=== PATIENT | male | born 1950 | race Caucasian/White ===

== ENCOUNTER 2016-06-07 14:58 | Inpatient (IN) | payer MEDICARE ==
[~2016-06-07] VITALS: Ht 193 cm; Wt 64.9 kg
[2016-06-07] VITALS (16 sets, daily range): BP systolic 95–122; BP diastolic 54–85; PULSE 72–169; RESP 15–36; TEMP 97.5–98.1; O2SAT 95–100
[2016-06-07] MEDS ORDERED: ASPIRIN 81 MG CHEW TAB PO ONE (15:15)
[2016-06-07] MEDS ORDERED: SODIUM CHLOR 0.9% 1000 ML INJ 1,000 ML IV ONE ×2 (15:15→15:45)
[2016-06-07] MEDS ORDERED: DILTIAZEM HCL 25 MG/5 ML VIAL IV ONE ×2 (15:15→15:45)
[2016-06-07] MEDS ORDERED: ADENOSINE IV SOLN 3 MG/ML 2 ML VIAL IV PUSH ONE (15:15)
[2016-06-07] MEDS ORDERED: TETANUS/DIPHTHERIA TOXOID ADULT 0.5 ML VIAL IM ONE (15:15)
[2016-06-07] MEDS: SODIUM CHLORIDE 0.9% FLUSH 5 ML FLUSH IVF PRN ×3 (15:21→16:21)
--- NOTE | 2016-06-07 15:24 | PD ---
HPI Chief Complaint: Cardiac Complaint Time Seen by Provider: 15:05 Travel History International Travel<30 days: No Contact w/Intl Traveler<30days: No Traveled to known affect area: No History of Present Illness HPI The patient is a 66-year-old male who presents to the emergency department via EMS for chest pain and palpitations. The patient was walking to the emergency department when he flagged down an ambulance for his chest pain. EMS states over the last 2 days he has had palpitations with elevated heart rate as well as occasional chest pain that he describes as pressure. The patient denies any shortness of breath, nausea, vomiting, or diaphoresis. Patient does have a history of alcohol use, has been drinking 1 pint of liquor per day for the last 6 months, after a divorce from his . The patient denies any known history of atrial fibrillation or arrhythmias. The patient does complain of lightheadedness, dizziness, as well as chest pressure associated with his palpitations and elevated heart rate. EMS states they gave the patient adenosine 6 mg intravenously prior to arrival, however, it did not affect his heart rate. The patient does not currently have a primary physician. The patient does smoke approximately one half a pack of cigarettes per day. He denies any known drug allergies and denies taking any medications on a regular basis. [facility] Past Medical History Narrative Medical Daily alcohol consumption Cerebrovascular Accident: Yes (?) Past Surgical History Surgical History: No Previous Surgery Social History Alcohol Use: Yes Tobacco Use: Yes Substance Use: No Allergies-Medications (Allergen,Severity, Reaction): Coded Allergies: No Known Allergies (Unverified , 06/07/16) Review of Systems Except as stated in HPI: all other systems reviewed are Neg General / Constitutional: No: Fever HENT: Positive: Lightheadedness Cardiovascular: Positive: Chest Pain or Discomfort, Palpitations, Irregular Rhythm, Tachycardia, No: Diaphoresis, Dyspnea on exertion Respiratory: No: Shortness of Breath Gastrointestinal: No: Nausea, Vomiting Musculoskeletal: No: Weakness Neurologic: Positive: Dizziness Psychiatric: Positive: Substance Abuse (drinks 1 pint of liquor per day) Physical Exam Narrative GENERAL: Awake, alert, pleasant 66-year-old male who appears his stated age and is in no acute respiratory distress. SKIN: Warm and dry. HEAD: Atraumatic. Normocephalic. EYES: Pupils equal and round. No scleral icterus. No injection or drainage. ENT: No nasal bleeding or discharge. Slightly dry mucous members. NECK: Trachea midline. No JVD. CARDIOVASCULAR: Irregularly irregular, tachycardic with a heart rate in the 160s. RESPIRATORY: No accessory muscle use. Coarse breath sounds with rhonchi bilaterally. GASTROINTESTINAL: Abdomen soft, non-tender, nondistended. No rebound tenderness. MUSCULOSKELETAL: No obvious deformities. No clubbing. No cyanosis. No edema. NEUROLOGICAL: Awake and alert. No obvious cranial nerve deficits. Motor grossly within normal limits. Normal speech. Nonfocal. Oriented 4. PSYCHIATRIC: Appropriate mood and affect; insight and judgment normal. Data Data Last Documented VS Vital Signs Date Time Temp Pulse Resp B/P Pulse Ox O2 Delivery O2 Flow Rate FiO2 06/07/16 16:18 138 22 113/65 99 Nasal Cannula 2.0 06/07/16 15:08 97.5 Orders Electrocardiogram (06/07/16 15:05) Ckmb (Isoenzyme) Profile (06/07/16 15:05) Complete Blood Count With Diff (06/07/16 15:05) Comprehensive Metabolic Panel (06/07/16 15:05) Magnesium (Mg) (06/07/16 15:05) Prothrombin Time / Inr (Pt) (06/07/16 15:05) Act Partial Throm Time (Ptt) (06/07/16 15:05) Troponin I (06/07/16 15:05) Chest, Single Ap (06/07/16 15:05) Ecg Monitoring (06/07/16 15:05) Bilateral Bp Monitoring (06/07/16 15:05) Iv Access Insert/Monitor (06/07/16 15:05) Oximetry (06/07/16 15:05) Oxygen Administration (06/07/16 15:05) Aspirin Chew (Aspirin Chew) (06/07/16 15:15) Sodium Chloride 0.9% Flush (Ns Flush) (06/07/16 15:15) Alcohol (Ethanol) (06/07/16 15:05) Sodium Chlor 0.9% 1000 Ml Inj (Ns 1000 M (06/07/16 15:15) Tetanus/Diphtheria Tox Adult (Tetanus/Di (06/07/16 15:15) Adenosine Inj (Adenocard Inj) (06/07/16 15:15) Diltiazem Inj (Cardizem Inj) (06/07/16 15:15) Sodium Chlor 0.9% 1000 Ml Inj (Ns 1000 M (06/07/16 15:45) Digoxin Inj (Lanoxin Inj) (06/07/16 15:45) Diltiazem Inj (Cardizem Inj) (06/07/16 15:45) Diltiazem Inj (Cardizem Inj) (06/07/16 16:30) Sodium Chloride 0.9% Flush (Ns Flush) (06/07/16 16:30) Admit Order (Ed Use Only) (06/07/16 16:28) Labs Laboratory Tests Test 06/07/16 15:20 White Blood Count 9.5 TH/MM3 Red Blood Count 5.10 MIL/MM3 Hemoglobin 16.4 GM/DL Hematocrit 48.1 % Mean Corpuscular Volume 94.3 FL Mean Corpuscular Hemoglobin 32.1 PG Mean Corpuscular Hemoglobin 34.0 % Concent Red Cell Distribution Width 14.4 % Platelet Count 205 TH/MM3 Mean Platelet Volume 8.3 FL Neutrophils (%) (Auto) 65.7 % Lymphocytes (%) (Auto) 20.2 % Monocytes (%) (Auto) 12.2 % Eosinophils (%) (Auto) 0.9 % Basophils (%) (Auto) 1.0 % Neutrophils # (Auto) 6.2 TH/MM3 Lymphocytes # (Auto) 1.9 TH/MM3 Monocytes # (Auto) 1.2 TH/MM3 Eosinophils # (Auto) 0.1 TH/MM3 Basophils # (Auto) 0.1 TH/MM3 CBC Comment DIFF FINAL Differential Comment Prothrombin Time 10.2 SEC Prothromb Time International 0.9 RATIO Ratio Activated Partial 26.3 SEC Thromboplast Time Sodium Level 142 MEQ/L Potassium Level 3.6 MEQ/L Chloride Level 105 MEQ/L Carbon Dioxide Level 20.7 MEQ/L Anion Gap 16 MEQ/L Blood Urea Nitrogen 22 MG/DL Creatinine 1.85 MG/DL Estimat Glomerular Filtration 37 ML/MIN Rate Random Glucose 83 MG/DL Calcium Level 8.4 MG/DL Magnesium Level 1.8 MG/DL Total Bilirubin 0.6 MG/DL Aspartate Amino Transf 131 U/L (AST/SGOT) Alanine Aminotransferase 97 U/L (ALT/SGPT) Alkaline Phosphatase 95 U/L Total Creatine Kinase 79 U/L Troponin I 0.07 NG/ML Total Protein 6.8 GM/DL Albumin 3.5 GM/DL Ethyl Alcohol Level 298 MG/DL [facility] Medical Decision Making Medical Screen Exam Complete: Yes Emergency Medical Condition: Yes Medical Record Reviewed: Yes Interpretation(s) EKG reveals atrial fibrillation with RVR with a rate of 170. Laboratory Tests Test 06/07/16 15:20 White Blood Count 9.5 TH/MM3 Red Blood Count 5.10 MIL/MM3 Hemoglobin 16.4 GM/DL Hematocrit 48.1 % Mean Corpuscular Volume 94.3 FL Mean Corpuscular Hemoglobin 32.1 PG Mean Corpuscular Hemoglobin 34.0 % Concent Red Cell Distribution Width 14.4 % Platelet Count 205 TH/MM3 Mean Platelet Volume 8.3 FL Neutrophils (%) (Auto) 65.7 % Lymphocytes (%) (Auto) 20.2 % Monocytes (%) (Auto) 12.2 % Eosinophils (%) (Auto) 0.9 % Basophils (%) (Auto) 1.0 % Neutrophils # (Auto) 6.2 TH/MM3 Lymphocytes # (Auto) 1.9 TH/MM3 Monocytes # (Auto) 1.2 TH/MM3 Eosinophils # (Auto) 0.1 TH/MM3 Basophils # (Auto) 0.1 TH/MM3 CBC Comment DIFF FINAL Differential Comment Prothrombin Time 10.2 SEC Prothromb Time International 0.9 RATIO Ratio Activated Partial 26.3 SEC Thromboplast Time Sodium Level 142 MEQ/L Potassium Level 3.6 MEQ/L Chloride Level 105 MEQ/L Carbon Dioxide Level 20.7 MEQ/L Anion Gap 16 MEQ/L Blood Urea Nitrogen 22 MG/DL Creatinine 1.85 MG/DL Estimat Glomerular Filtration 37 ML/MIN Rate Random Glucose 83 MG/DL Calcium Level 8.4 MG/DL Magnesium Level 1.8 MG/DL Total Bilirubin 0.6 MG/DL Aspartate Amino Transf 131 U/L (AST/SGOT) Alanine Aminotransferase 97 U/L (ALT/SGPT) Alkaline Phosphatase 95 U/L Total Creatine Kinase 79 U/L Troponin I 0.07 NG/ML Total Protein 6.8 GM/DL Albumin 3.5 GM/DL Ethyl Alcohol Level 298 MG/DL Differential Diagnosis Differential diagnosis includes alcoholic cardiomyopathy, atrial fibrillation with RVR, hypomagnesemia, hypokalemia, dehydration, new onset A. fib, congestive heart failure, alcohol withdrawal. Narrative Course IV was established, labs were drawn and sent, and the patient was placed on cardiac telemetry monitoring and continuous pulse oximetry monitoring. EKG was ordered and interpreted. The patient was noted to have atrial fibrillation with RVR, therefore, was administered Cardizem 20 mg intravenously 1 L IV fluid bolus. Potassium and magnesium levels were sent to lab. Chest x-ray was obtained. The patient's electrolytes are unremarkable. Creatinine is mildly elevated at 1.85, alcohol level is elevated at 285, troponin is elevated at 0.07. Patient's elevated troponin may be related to elevated heart rate and onset atrial fibrillation. The patient did receive aspirin, however, I will hold heparin until patient is evaluated by cardiology. The on-call medical service was paged for admission. The patient required a second dose of Cardizem 15 mg, one dose of digoxin 0.25 mg, heart rate was still in the 120s to 130s. Therefore, patient was placed on a Cardizem drip. Patient will be admitted to the on-call medical service, [facility] on a Cardizem drip. The patient will need evaluation by cardiology for possible anticoagulation with aspirin and /or oral anticoagulants for his atrial fibrillation. Patient will also benefit from echocardiogram. The patient is comfortable with this plan of care and will be admitted. Critical Care Narrative Aggregate critical care time was 40 minutes. Time to perform other separately billable procedures was not included in the critical care time. My time did not include minutes spent treating any other patients simultaneously or on activities that did not directly contribute to the patient's treatment. The services I provided to this patient were to treat and/or prevent clinically significant deterioration that could result in: Arrhythmia, anoxia, hypoxia, NSTEMI, pulmonary edema. I provided critical care services requiring my management, as noted below: Chart data review, documentation time, medication orders and management, vital sign assessments/reviewing monitor data, ordering and reviewing lab tests, ordering and interpreting/reviewing x-rays and diagnostic studies, care of the patient and discussion of the patient with the admitting physicians. Physician Communication Physician Communication The on-call medical service was paged for admission. I discussed the patient with Dr. Jim who agrees with admission. Diagnosis Primary Impression: Atrial fibrillation with RVR Additional Impression: Elevated troponin Admitting Information Admitting Physician Requests: Admit Condition: Stable Silverio Recio MD Jun 07, 2016 15:24
[2016-06-07] MEDS ORDERED: DIGOXIN 0.5 MG/2 ML VIAL IV PUSH ONE (15:45)
[2016-06-07 15:57] LABS: AUTOMATED NEUTROPHIL # 6.2 TH/MM3 (1.8-7.7); BASOPHIL # 0.1 TH/MM3 (0-0.2); EOSINOPHIL # 0.1 TH/MM3 (0-0.4); EOSINOPHIL % 0.9 % (0.0-4.0); HEMATOCRIT 48.1 % (39.0-51.0); HEMO FLAGS DIFF FINAL; LYMPH % 20.2 % (9.0-44.0); LYMPHOCYTE # 1.9 TH/MM3 (1.0-4.8); MEAN CELL VOLUME 94.3 FL (80.0-100.0); MEAN CORPUSCULAR HEMOGLOBIN 32.1 PG (27.0-34.0); MONO % 12.2 % (0.0-8.0); NEUT % 65.7 % (16.0-70.0); PLATELET COUNT 205 TH/MM3 (150-450); RED CELL DISTRIBUTION WIDTH 14.4 % (11.6-17.2); WHITE BLOOD COUNT 9.5 TH/MM3 (4.0-11.0)
[2016-06-07 16:06] LABS: APTT (PATIENT) 26.3 SEC (24.3-30.1); INTERNATIONAL NORMALIZED RATIO 0.9 RATIO; PROTHROMBIN TIME - PATIENT 10.2 SEC (9.8-11.6)
[2016-06-07 16:12] LABS: ALT (GPT) 97 U/L (12-78); ANION GAP 16 MEQ/L (5-15); AST (GOT) 131 U/L (15-37); BICARBONATE 20.7 MEQ/L (21.0-32.0); BLOOD UREA NITROGEN 22 MG/DL (7-18); CHLORIDE 105 MEQ/L (98-107); GLOMERULAR FILTRATION RATE 37 ML/MIN (>89); MAGNESIUM 1.8 MG/DL (1.5-2.5); POTASSIUM 3.6 MEQ/L (3.5-5.1); SODIUM (NA) 142 MEQ/L (136-145)
[2016-06-07 16:15] LABS: ALKALINE PHOSPHATASE 95 U/L (45-117); TOTAL BILIRUBIN ADULT 0.6 MG/DL (0.2-1.0)
[2016-06-07 16:17] LABS: CREATINE KINASE 79 U/L (39-308)
[2016-06-07] MEDS ORDERED: SODIUM CHLORIDE 0.9% FLUSH 5 ML FLUSH IVF PRN (16:30)
[2016-06-07] MEDS ORDERED: DILTIAZEM INJ 125 MG in SODIUM CHLORIDE 0.9% INJ 100 ML IV SCH ×2 (16:30→16:45)
--- NOTE | 2016-06-07 16:33 | RADRPT ---
EXAM DATE/TIME: 06/07/2016 15:24 [place] COMPARISON: No previous studies available for comparison. INDICATIONS : Patient has been short of breath and had chest pain for two days. Patient is a smoker. MEDICAL HISTORY : Chronic obstructive pulmonary disease. SURGICAL HISTORY : None. ENCOUNTER: Initial ACUITY: 2 days PAIN SCORE: 8/10 LOCATION: Bilateral chest FINDINGS: A single view of the chest demonstrates the lungs to be symmetrically aerated without evidence of mas s, infiltrate or effusion. Emphysema. The cardiomediastinal contours are unremarkable. Osseous struc tures are intact. CONCLUSION: 1. No acute findings. Emphysema. Jerry Ugalde MD on June 07, 2016 at 16:31 Board Certified Radiologist. This report was verified electronically.
--- NOTE | 2016-06-07 16:40 | HHI.HP ---
[facility] Service Family Medicine Primary Care Physician Admission Diagnosis new onset atrial fibrillation, elevated troponin Diagnoses: Chief Complaint: palpitations International Travel<30 Days: No Contact w/Intl Traveler<30days: No Known Affected Area: No History of Present Illness 66 y/o male with a history of COPD presents by evac for palpitations. States for the last two days, he has felt general malaise and palpitations. Denies any palpitations in the past. Also states he has had trouble sleeping and decreased appetite. Some chest pain in the past, none currently. Has a history of COPD and chronic shortness of breath after walking a couple blocks. Endorses lightheadedness/dizziness, fever/chills. Drinks a pint of liquor a day for several years. No history of heart disease. No family history of heart disease. No history of high blood pressure or hyperthyroidism. No strokes in the past. Has no primary care doctor. Review of Systems Constitutional: COMPLAINS OF: Fever, Chills Endocrine: DENIES: Heat/cold intolerance, Polydipsia Eyes: DENIES: Blurred vision, Vision loss Ears, nose, mouth, throat: DENIES: Tinnitus, Hearing loss, Throat pain, Running Nose Respiratory: COMPLAINS OF: Cough, Sputum production, Shortness of breath Cardiovascular: COMPLAINS OF: Palpitations, DENIES: Chest pain, Lower Extremity Edema Gastrointestinal: DENIES: Abdominal pain, Black stools, Bloody stools, Constipation, Diarrhea, Nausea, Vomiting Genitourinary: DENIES: Urinary frequency, Urinary incontinence Musculoskeletal: DENIES: Joint pain, Muscle aches Integumentary: DENIES: Abnormal pigmentation, Rash Hematologic/lymphatic: DENIES: Bruising, Lymphadenopathy Immunologic/allergic: DENIES: Eczema, Urticaria Neurologic: DENIES: Abnormal gait, Headache Psychiatric: COMPLAINS OF: Depression, DENIES: Anxiety, Confusion Other as per [facility] Past Family Social History Past Medical History COPD Past Surgical History None Reported Medications Albuterol inhaler Allergies: Coded Allergies: No Known Allergies (Unverified , 06/07/16) Active Ordered Medications Active Medications Adenosine (Adenocard Inj) 12 mg ONCE ONCE IV PUSH; Start 06/07/16 at 15:15; Stop 06/07/16 at 15:15; Status DC Aspirin (Aspirin Chew) 162 mg ONCE ONCE PO Last administered on 06/07/16t 15:22 ; Admin Dose 162 MG; Start 06/07/16 at 15:15; Stop 06/07/16 at 15:16; Status DC Digoxin (Lanoxin Inj) 0.25 mg ONCE ONCE IV PUSH Last administered on 06/07/16 16:21; Admin Dose 0.25 MG; Start 06/07/16 at 15:45; Stop 06/07/16 at 15:46; Status DC Diltiazem HCl 15 mg 15 mg ONCE ONCE IV Last administered on 06/07/16 16:12; Admin Dose 15 MG; Start 06/07/16 at 15:45; Stop 06/07/16 at 15:46; Status DC Diltiazem HCl 20 mg 20 mg ONCE ONCE IV Last administered on 06/07/16 15:20; Admin Dose 20 MG; Start 06/07/16 at 15:15; Stop 06/07/16 at 15:16; Status DC Diltiazem HCl/ Sodium Chloride (Cardizem Inj/NS Inj) 125 ml @ 0 mls/hr TITRATE IV; Start 06/07/16 at 16:30 IV Flush (NS Flush) 2 ml UNSCH PRN IVF; Start 06/07/16 at 16:30 IV Flush 2 ml 2 ml UNSCH PRN IVF Last administered on 06/07/16 16:21; Admin Dose 2 ML; Start 06/07/16 at 15:15 Sodium Chloride (NS 1000 ml Inj) 1,000 ml @ 999 mls/hr BOLUS ONCE IV Last administered on 06/07/16 15:21; Admin Dose 999 MLS/HR; Start 06/07/16 at 15:15 ; Stop 06/07/16 at 16:15; Status DC Sodium Chloride (NS 1000 ml Inj) 1,000 ml @ 999 mls/hr BOLUS ONCE IV Last administered on 06/07/16 15:39; Admin Dose 999 MLS/HR; Start 06/07/16 at 15:45 ; Stop 06/07/16 at 16:45 Tetanus/ Diphtheria Toxoids (Tetanus/ Diphtheria Tox Adult) 0.5 ml ONCE ONCE IM Last administered on 06/07/16 15:28; Admin Dose 0.5 ML; Start 06/07/16 at 15:15 ; Stop 06/07/16 at 15:16; Status DC Family History No history of heart disease Social History Drinks 1 pint/day for years Smokes 1/2 PPD for 55 years Denies illicit drug use Physical Exam Vital Signs Vital Signs Date Time Temp Pulse Resp B/P Pulse Ox O2 Delivery O2 Flow Rate FiO2 06/07/16 16:33 135 26 117/78 96 Nasal Cannula 2.0 06/07/16 16:18 138 22 113/65 99 Nasal Cannula 2.0 06/07/16 15:35 148 30 95/54 97 Room Air 06/07/16 15:33 141 95/54 117/70 06/07/16 15:17 169 36 117/70 Room Air 06/07/16 15:15 97 Room Air 06/07/16 15:15 Nasal Cannula 2.0 06/07/16 15:13 170 36 96 Room Air 06/07/16 15:08 97.5 167 30 117/70 96 Physical Exam GENERAL: Well developed, well-nourished elderly male. Negative Lavines sign. Not diaphoretic. Not anxious appearing. EYES: PERRLA. EOMI. Lids and conjunctivae reveal no gross abnormality. No scleral icterus. ENT: Head NCAT. MMM. OP/OC clear. NECK: No JVD. No carotid bruits. Neck supple, no masses. Trachea midline. No thyromegaly. RESPIRATORY: No evidence of pulmonary edema. Scattered wheezes throughout. Prolonged expiratory phase CARDIOVASCULAR: Irregularly irregular rhythm. Heart rate is 130. Radial and DP pulses 2+ and symmetric bilaterally. Brisk capillary refill. ABDOMEN: S/NT/ND. Bowel sounds x 4. No masses or pulsations present. EXTREMITIES: No remarkable dependent edema or varicosities. No clubbing, cyanosis, or erythema. MUSCULOSKELETAL: MAEW without significant joint pain or deformity. Strength 5/5 in upper and lower extremities. No calf tenderness. SKIN: Essentially clear with no significant rash or lesions. Adequate skin turgor. NEUROLOGICAL: NFND. Cranial nerves 2-12 grossly intact. PSYCHIATRIC: Mental status normal for age. Laboratory Laboratory Tests Test 06/07/16 15:20 White Blood Count 9.5 Red Blood Count 5.10 Hemoglobin 16.4 Hematocrit 48.1 Mean Corpuscular Volume 94.3 Mean Corpuscular Hemoglobin 32.1 Mean Corpuscular Hemoglobin 34.0 Concent Red Cell Distribution Width 14.4 Platelet Count 205 Mean Platelet Volume 8.3 Neutrophils (%) (Auto) 65.7 Lymphocytes (%) (Auto) 20.2 Monocytes (%) (Auto) 12.2 Eosinophils (%) (Auto) 0.9 Basophils (%) (Auto) 1.0 Neutrophils # (Auto) 6.2 Lymphocytes # (Auto) 1.9 Monocytes # (Auto) 1.2 Eosinophils # (Auto) 0.1 Basophils # (Auto) 0.1 CBC Comment DIFF FINAL Differential Comment Prothrombin Time 10.2 Prothromb Time International 0.9 Ratio Activated Partial 26.3 Thromboplast Time Sodium Level 142 Potassium Level 3.6 Chloride Level 105 Carbon Dioxide Level 20.7 Anion Gap 16 Blood Urea Nitrogen 22 Creatinine 1.85 Estimat Glomerular Filtration 37 Rate Random Glucose 83 Calcium Level 8.4 Magnesium Level 1.8 Total Bilirubin 0.6 Aspartate Amino Transf 131 (AST/SGOT) Alanine Aminotransferase 97 (ALT/SGPT) Alkaline Phosphatase 95 Total Creatine Kinase 79 Troponin I 0.07 Total Protein 6.8 Albumin 3.5 Ethyl Alcohol Level 298 Result Diagram: 06/07/16 1520 06/07/16 1520 Imaging Last Impressions Chest X-Ray 06/07/16 1505 Signed Impressions: Service Date/Time: Thursday, June 07, 2016 15:24 - CONCLUSION: 1. No acute findings. Emphysema. Jerry Ugalde MD Assessment and Plan Assessment and Plan 66-year-old male with history of COPD presents with palpitations. Found to be in atrial fibrillation with RVR. We will admit for A. fib workup. Code Status DNR Discussed Condition With Dr. Jim Problem List: (1) Atrial fibrillation with RVR Status: Acute Plan: No history of atrial fibrillation or heart disease. Has a significant social history of smoking and alcohol abuse. Alcohol level of 298 EKG showed atrial fibrillation with RVR CXR showed no acute findings, emphysema. Given Adenosine, cardizem x2, and digoxin with no resolution of tachycardia [id number]-Urmc score of 1 -Start diltiazem drip -Initial Trop 0.07. Trend Fay and EKGs x 2. -Supplemental O2. -Metoprolol 25 PO BID elmer -2D Echocardiogram -Tele. -TSH, free T4 -Consult cardiology, appreciate recs -Start warfarin and therapeutic lovenox -AM BMP (2) COPD (chronic obstructive pulmonary disease) Status: Acute Plan: History of COPD. Chest x-ray positive for emphysema -Albuterol nebulizer q4H -Duonebs q4H PRN -Supplemental O2 (3) Alcohol abuse Status: Acute Plan: Drinks 1 pint per day. Alcohol level 298 AST 131, AST 97 -CIWA protocol -Rally pack -Counseled on risks of alcohol abuse (4) FEN Status: Acute Plan: Fluids: none, diltiazem drip Electrolytes: wnl, continue to monitor Nutrition: heart healthy diet DVT ppx: therapeutic lovenox Physician Certification 2 Midnight Certification Type: Admission for Inpatient Services Order for Inpatient Services The services are ordered in accordance with Medicare regulations or non- Medicare payer requirements, as applicable. In the case of services not specified as inpatient-only, they are appropriately provided as inpatient services in accordance with the 2-midnight benchmark. Estimated LOS (days): 3 days is the estimated time the patient will need to remain in the hospital, assuming treatment plan goals are met and no additional complications. Post-Hospital Plan: Home Problem Qualifiers (1) COPD (chronic obstructive pulmonary disease): Qualified Code: J44.9 - Chronic obstructive pulmonary disease, unspecified COPD type Valeriano Smith MD R1 Jun 07, 2016 16:40
[2016-06-07] MEDS ORDERED: LORazepam 2 MG TAB PO PRN (16:45)
[2016-06-07] MEDS ORDERED: hydrALAZINE HCL 20 MG/ML VIAL IV PRN (16:45)
[2016-06-07] MEDS ORDERED: RESP: ALBUTEROL 2.5 MG/IPRATROPIUM 0.5 MG NEB (PRN) NEB (16:45)
[2016-06-07] MEDS ORDERED: LORazepam 2 MG/ML VIAL IV PUSH PRN ×3 (16:45)
[2016-06-07] MEDS ORDERED: DOCUSATE SODIUM 50 MG/SENNA 8.6 MG TAB PO PRN (16:45)
[2016-06-07] MEDS ORDERED: HALOPERIDOL LACTATE 5 MG/ML AMP IM PRN (16:45)
[2016-06-07] MEDS ORDERED: SODIUM CHLORIDE 0.9% FLUSH 5 ML FLUSH FLUSH PRN (16:45)
[2016-06-07] MEDS ORDERED: FLUMAZENIL 0.5 MG/5 ML VIAL IV PUSH PRN (16:45)
[2016-06-07] MEDS: WARFARIN SOD 5 MG TAB PO SCH (17:17)
[2016-06-07] MEDS: NICOTINE 21 MG/24 HR PATCH TD SCH (17:19)
[2016-06-07] MEDS: ENOXAPARIN SODIUM 80 MG/0.8 ML SYRINGE SQ SCH (17:20)
[2016-06-07] MEDS: RESP: ALBUTEROL 2.5 MG/3 ML NEB (SCH) NEB (19:42)
[2016-06-07] MEDS ORDERED: DILTIAZEM HCL 60 MG TAB PO SCH (20:00)
[2016-06-07] MEDS: REMOVE OLD NICODERM (NICOTINE) PATCH TD SCH (21:00)
[2016-06-07] MEDS: METOPROLOL TARTRATE 25 MG TAB PO SCH (21:02)
[2016-06-07] MEDS: SODIUM CHLORIDE 0.9% FLUSH 5 ML FLUSH FLUSH SCH (21:03)
[2016-06-08] VITALS (26 sets, daily range): BP systolic 112–145; BP diastolic 59–77; PULSE 59–94; RESP 15–20; TEMP 97.9–99; O2SAT 92–99
[2016-06-08] MEDS: DILTIAZEM HCL 60 MG TAB PO SCH ×4 (02:32→20:43)
[2016-06-08 04:54] LABS: HEMATOCRIT 38.7 % (39.0-51.0); MEAN CELL VOLUME 94.4 FL (80.0-100.0); MEAN CORPUSCULAR HEMOGLOBIN 32.5 PG (27.0-34.0); MEAN CORPUSCULAR HGB CONC 34.4 % (32.0-36.0); PLATELET COUNT 146 TH/MM3 (150-450); RED CELL DISTRIBUTION WIDTH 14.1 % (11.6-17.2); REVIEW FLAG FINAL; WHITE BLOOD COUNT 9.8 TH/MM3 (4.0-11.0)
[2016-06-08 05:19] LABS: BICARBONATE 26.6 MEQ/L (21.0-32.0); POTASSIUM 3.6 MEQ/L (3.5-5.1)
[2016-06-08 05:20] LABS: FREE T4 1.01 NG/DL (0.76-1.46)
[2016-06-08] MEDS: ENOXAPARIN SODIUM 80 MG/0.8 ML SYRINGE SQ SCH ×2 (06:28→17:19)
[2016-06-08] MEDS: RESP: ALBUTEROL 2.5 MG/3 ML NEB (SCH) NEB ×4 (07:22→20:00)
[2016-06-08] MEDS: MULTIVITAMINS/MINERALS THERAPEUTIC TAB PO SCH (07:56)
[2016-06-08] MEDS: FOLIC ACID 1 MG TAB PO SCH (07:56)
[2016-06-08] MEDS: THIAMINE HCL 100 MG TAB PO SCH (07:56)
[2016-06-08] MEDS: LORazepam 1 MG TAB PO PRN (07:56)
[2016-06-08] MEDS: METOPROLOL TARTRATE 25 MG TAB PO SCH ×2 (07:56→20:43)
[2016-06-08] MEDS: SODIUM CHLORIDE 0.9% FLUSH 5 ML FLUSH FLUSH SCH ×2 (07:57→20:43)
[2016-06-08] MEDS: LORazepam 2 MG/ML VIAL IV PUSH PRN ×3 (09:46→17:18)
[2016-06-08] MEDS: NICOTINE 21 MG/24 HR PATCH TD SCH (09:47)
--- NOTE | 2016-06-08 10:25 | MB ---
cc: RAMILA CORTES MD DATE OF CONSULTATION: 06/08/2016 REASON FOR CONSULTATION New onset atrial fibrillation, chest pain. HISTORY OF PRESENT ILLNESS The patient is a pleasant 66-year-old gentleman who is an alcoholic, drinking about a pint of liquor a day, who for the past week or so has been having palpitations as well as chest tightness, was found to be in rapid atrial fibrillation in the emergency department yesterday and was admitted. He has since converted back to normal sinus rhythm and is feeling better without any residual palpitations or chest discomfort, lightheadedness or dizziness. PAST MEDICAL HISTORY COPD with ongoing tobacco abuse. MEDICATIONS Current medications: 1. Folate. 2. Thiamine. 3. Cardizem p.o. 60 mg q.6 hours. 4. Lopressor 25 mg p.o. b.i.d. 5. As needed Ativan. 6. Haldol. 7. Warfarin. ALLERGIES NO KNOWN DRUG ALLERGIES. PHYSICAL EXAMINATION VITAL SIGNS: Afebrile. Pulse 60, respiratory rate 20, BP 145/71. Sating 99 on room air. GENERAL: A pleasant, thin gentleman with clear alcohol withdrawal tremors. NECK: No JVD. LUNGS: Clear to auscultation bilaterally. CARDIOVASCULAR: Regular rate and rhythm. No murmurs appreciated. ABDOMEN: Abdomen is benign. EXTREMITIES: No edema. LABORATORY DATA Sodium 141, potassium 3.6, chloride 107, bicarb 26.6, BUN 18, creatinine 0.85, down from 1.85, cardiac enzymes 0.07, 0.09, 0.06. White count 9.8, hematocrit 38.7, platelets 146. EKG Showed atrial fibrillation rate of [address] changes. Subsequent EKG showed sinus rate at [address] changes. IMPRESSION 1. New onset atrial fibrillation. The patient likely has an alcohol-related paroxysmal atrial fibrillation. He is currently in sinus and on warfarin for anticoagulation and metoprolol and Cardizem for rate control. He does say he is willing to take medications regularly. 2. Chest pain. The patient's chest pain may simply be due to his palpitations but given his slightly abnormal troponins, we will have him undergo a nuclear stress test, ideally when his withdrawal tremors are better controlled. 3. Alcohol, tobacco abuse. I counseled both of these at length. The patient says he will try to do better. Further recommendations will be based on his clinical course. An echocardiogram is also pending. Thank you for the opportunity to participate in this patient's care. MD SEBASTIÁN Isbell/JUAN A /9:44 AM /10:16 AM
--- NOTE | 2016-06-08 10:55 | HHI.FPPN ---
Subjective Remarks Patient seen, examined and discussed with the medicine team. This is a 66-year-old male who presented via [facility] 2 the emergency department with palpitations. He had not experienced this in the past. Denies chest pain but it admits to chronic shortness of breath, unable to walk more than a couple of blocks without coming short of breath. He does not have a PCP, uses albuterol for his COPD. Admits to 1 pint of whiskey a day , one half pack of cigarettes daily for 55 years. He was given adenosine and Cardizem 2, and digoxin and was rate controlled. He then converted. See history and physical examination for this hospitalization for additional past, family and social history. Patient lives alone. Review of systems this morning was repeated, and other than a productive cough and excessive sputum, unchanged from yesterday with the exception that he no longer is feeling the palpitations. Unless noted, other systems are negative. This morning, he is tremulous, feels a bit shaky, and is coughing up thick clear to light yellow sputum. No chest pain, no palpitations. He denies ever having had a withdrawal seizure. Objective Vitals Vital Signs Date Time Temp Pulse Resp B/P Pulse Ox O2 Delivery O2 Flow Rate FiO2 06/08/16 10:00 59 06/08/16 09:00 60 06/08/16 08:00 68 06/08/16 07:00 62 06/08/16 07:00 97.9 68 20 145/71 99 06/08/16 06:00 69 06/08/16 05:00 61 06/08/16 04:00 70 06/08/16 03:00 98.0 94 20 128/71 95 06/08/16 03:00 72 06/08/16 02:00 62 06/08/16 01:00 69 06/08/16 00:00 71 06/07/16 23:00 98.1 73 20 114/62 95 06/07/16 23:00 76 06/07/16 22:00 80 06/07/16 21:00 80 06/07/16 20:00 77 06/07/16 19:00 83 25 121/60 98 06/07/16 16:33 135 26 117/78 96 Nasal Cannula 2.0 06/07/16 16:18 138 22 113/65 99 Nasal Cannula 2.0 06/07/16 15:35 148 30 95/54 97 Room Air 06/07/16 15:33 141 95/54 117/70 06/07/16 15:17 169 36 117/70 Room Air 06/07/16 15:15 97 Room Air 06/07/16 15:15 Nasal Cannula 2.0 06/07/16 15:13 170 36 96 Room Air 06/07/16 15:08 97.5 167 30 117/70 96 I/O 06/07/16 06/07/16 06/07/16 06/08/16 06/08/16 06/08/16 07:00 15:00 23:00 07:00 15:00 23:00 Intake Total 960 ml Output Total 210 ml Balance 750 ml Intake Oral 960 ml Output Urine Total 210 ml # Voids 2 # Bowel Movements 0 Result Diagram: 06/08/16 0439 06/08/16 0439 Other Results CIWA score this morning was 4 Imaging Last Impressions Chest X-Ray 06/07/16 1505 Signed Impressions: Service Date/Time: Tuesday, June 07, 2016 15:24 - CONCLUSION: 1. No acute findings. Emphysema. Jerry Ugalde MD Objective Remarks O. CONSTITUTIONAL/GEN: normally nourished, tremulous. He has been given 1 dose of by mouth Ativan. EYES: conjunctiva normal, PERRLA, EOMI. NECK: Supple LUNGS: Coarse breath sounds throughout, worse in the bases. CARDIOVASCULAR: RR without murmur or gallop. No significant edema. GI/ABD: soft without masses, without organomegaly. Active bowel sounds NEURO: No focal deficits. Tremulous SKIN: color normal, no rashes noted. HEME/LYMPH: no bruising, petechia or significant adenopathy MUSC: back is normal in appearance. Extremities are normal in appearance. PSYCH/MENTAL STATUS: Alert and oriented x 3. A/P Assessment and Plan 66-year-old male with history of COPD presents with palpitations. Found to be in atrial fibrillation with RVR. He has subsequently converted and is rate controlled. He has been seen by cardiology and nuclear stress test will be performed when patient is stable from his alcohol withdrawal. Attending Attestation Patient seen and examined. Case reviewed and discussed with the resident team. Agree with plan of care as discussed with me and documented in the note. Problem List: (1) Atrial fibrillation with RVR Status: Resolved Plan: No history of atrial fibrillation or heart disease. Has a significant social history of smoking and alcohol abuse. Alcohol level of 298 EKG showed atrial fibrillation with RVR CXR showed no acute findings, emphysema. Given Adenosine, cardizem x2, and digoxin with no resolution of tachycardia [id number] score of 1 -Start diltiazem drip -Initial Trop 0.07. Trend Fay and EKGs x 2. -Supplemental O2. -Metoprolol 25 PO BID elmer -2D Echocardiogram -Tele. -TSH, free T4 -Consult cardiology, appreciate recs -Start warfarin and therapeutic lovenox -AM BMP (2) COPD (chronic obstructive pulmonary disease) Status: Chronic Plan: History of COPD. Chest x-ray positive for emphysema -Albuterol nebulizer q4H -Duonebs q4H PRN -Supplemental O2 (3) Alcohol abuse Status: Chronic Plan: Drinks 1 pint per day. Alcohol level 298 AST 131, AST 97 -CIWA protocol -Rally pack -Counseled on risks of alcohol abuse and encouraged to use this opportunity to quit drinking alcohol. (4) FEN Status: Chronic Plan: Fluids: none Electrolytes: wnl, continue to monitor Nutrition: heart healthy diet DVT ppx: therapeutic lovenox (5) Tobacco abuse disorder Status: Chronic Plan: Counseled for smoking cessation Problem Qualifiers (1) COPD (chronic obstructive pulmonary disease): Qualified Code: J44.9 - Chronic obstructive pulmonary disease, unspecified COPD type Yvrose Mcnulty MD Jun 08, 2016 10:55
[2016-06-08] MEDS ORDERED: CALCIUM CARBONATE 500 MG CHEWABLE TAB CHEW ONE (11:00)
[2016-06-08 11:08] LABS: PROTHROMBIN TIME - PATIENT 11.4 SEC (9.8-11.6)
[2016-06-08] MEDS: RESP: ALBUTEROL 2.5 MG/IPRATROPIUM 0.5 MG NEB (SCH) NEB ×3 (11:36→20:15)
--- NOTE | 2016-06-08 12:42 | EKG ---
Date Performed: 06/07/2016 Time Performed: 15:10:43 PTAGE: 66 years EKG: ATRIAL FIBRILLATION WITH RAPID VENTRICULAR RESPONSE MODERATE ST DEPRESSION ABNORMAL ECG INT ERPRETATION BASED ON A DEFAULT AGE OF 40 YEARS NO PREVIOUS TRACING DOCTOR: Aguilar Tomlin Interpretating Date/Time 06/08/2016 12:41:27
--- NOTE | 2016-06-08 12:43 | EKG ---
Date Performed: 06/08/2016 Time Performed: 03:49:26 PTAGE: 66 years EKG: Sinus rhythm Compared to previous tracing, sinus rhythm has replaced rapid atrial fibrillation Normal ECG PREVIOUS TRACING : 06/07/2016 15.10 DOCTOR: Aguilar Tomlin Interpretating Date/Time 06/08/2016 12:41:49
[2016-06-08] MEDS: WARFARIN SOD 5 MG TAB PO SCH (16:09)
--- NOTE | 2016-06-08 16:31 | EC ---
Study Study Date:06/08/2016 STUDY CONCLUSIONS SUMMARY - Procedure narrative: Transthoracic echocardiography. Image quality was suboptimal. The study was technically limited. Scanning was performed from the parasternal, apical, and subcostal acoustic windows. - Left ventricle: The cavity size was normal. Wall thickness was normal. Systolic function was normal. The estimated ejection fraction was in the range of 55% to 60%. - Aortic valve: Valve area: 2.39cm^2 (Vmax). If LV function is below 40, please consider prescribing an ACEI or ARB or document rationale for non-use. PROCEDURE DATA STUDY STATUS: Elective. Procedure: Transthoracic echocardiography. Image quality was suboptimal. The study was technically limited. Scanning was performed from the parasternal, apical, and subcostal acoustic windows. Study completion: The patient tolerated the procedure well. Transthoracic echocardiography. M-mode, complete 2D, complete spectral Doppler, and color Doppler. Height: Height: 76in. Weight: Weight: 148.7lb. Body mass index: BMI: 18.1kg/m^2. Body surface area: BSA: 1.96m^2. Patient status: Inpatient. CARDIAC ANATOMY LEFT VENTRICLE: The cavity size was normal. Wall thickness was normal. Systolic function was normal. The estimated ejection fraction was in the range of 55% to 60%. Images were inadequate for LV wall motion assessment. AORTIC VALVE: Trileaflet; normal thickness leaflets. Doppler: Transvalvular velocity was within the normal range. There was no stenosis. No regurgitation. Valve area: 2.39cm^2 (Vmax). Indexed valve area: 1.22cm^2/m^2 (Vmax). AORTA: Aortic root: The aortic root was normal in size. MITRAL VALVE: Structurally normal valve. Doppler: Transvalvular velocity was within the normal range. There was no evidence for stenosis. No regurgitation. LEFT ATRIUM: The atrium was normal in size. RIGHT VENTRICLE: The cavity size was normal. Wall thickness was normal. PULMONIC VALVE: Doppler: Transvalvular velocity was within the normal range. There was no evidence for stenosis. No regurgitation. TRICUSPID VALVE: Structurally normal valve. Doppler: Transvalvular velocity was within the normal range. No regurgitation. PULMONARY ARTERY: The main pulmonary artery was normal-sized. Systolic pressure was within the normal range. RIGHT ATRIUM: The atrium was normal in size. PERICARDIUM: There was no pericardial effusion. SYSTEMIC VEINS: Inferior vena cava: The vessel was normal in size. Patient weight: 148.7lb _Ejection fraction:_ 65-75% _Fractional shortening:_ 32% up to 5Kg 5-11.5Kg 11.6-22.9Kg 23-45Kg 45-57Kg Aortic Root 7-13 <17 13-22 17-27 17-27 LA diam 6-13 <23 24-38 33-47 37-40 RVID 10-17 7-15 7-15 7-18 8-17 LVIDd 12-22 <32 24-38 33-47 37-40 LVPW 2-4 3-6 5-7 6-8 7-8 IVS 2-4 3-6 5-7 6-8 7-8 BASIC MEASUREMENTS ADULT NORMAL Left ventricle LV internal dimension, ED, chordal 44.5 mm 43-52 level, PLAX LV internal dimension, ES, chordal 34 mm 23-38 level, PLAX Fractional shortening, chordal level, *24 % >29 PLAX LV posterior wall thickness, ED 7.6 mm IVS/LVPW ratio, ED 1.07 <1.3 Ventricular septum Septal thickness, ED 8.12 mm Aortic valve Leaflet separation 17 mm 15-26 BASIC MEASUREMENTS ADULT NORMAL Aortic valve Leaflet separation 17 mm 15-26 Aorta Root diameter, ED 21 mm 20-37 Left atrium Anterior-posterior dimension, ES 29 mm 19-40 Anterior-posterior dimension index, ES 1.48 cm/m^2 <2.2 LA/aortic root ratio 1.38 DOPPLER MEASUREMENTS ADULT NORMAL Aortic valve Peak velocity, S 82.8 cm/s Valve area, Vmax 2.39 cm^2 Valve area index, Vmax 1.22 cm^2/m^2 LEGEND: Mean values are shown as u=mean value. Asterisk (*) anderson values outside specified normal range. Prepared and signed by Aguilar Tomlin [id number]
[2016-06-08] MEDS: REMOVE OLD NICODERM (NICOTINE) PATCH TD SCH (20:43)
[2016-06-09] VITALS (25 sets, daily range): BP systolic 128–149; BP diastolic 71–80; PULSE 66–87; RESP 17–18; TEMP 97.5–99.6; O2SAT 95–97
[2016-06-09] MEDS: DILTIAZEM HCL 60 MG TAB PO SCH ×4 (02:45→20:33)
[2016-06-09] MEDS: RESP: ALBUTEROL 2.5 MG/IPRATROPIUM 0.5 MG NEB (SCH) NEB ×7 (04:00→23:04)
[2016-06-09] MEDS: ENOXAPARIN SODIUM 80 MG/0.8 ML SYRINGE SQ SCH ×2 (05:59→18:16)
[2016-06-09 07:17] LABS: PROTHROMBIN TIME - PATIENT 11.4 SEC (9.8-11.6)
[2016-06-09 07:21] LABS: AUTOMATED NEUTROPHIL # 5.8 TH/MM3 (1.8-7.7); BASOPHIL # 0.1 TH/MM3 (0-0.2); EOSINOPHIL # 0.3 TH/MM3 (0-0.4); HEMATOCRIT 39.8 % (39.0-51.0); HEMO FLAGS DIFF FINAL; LYMPH % 20.1 % (9.0-44.0); LYMPHOCYTE # 1.7 TH/MM3 (1.0-4.8); MEAN CELL VOLUME 94.6 FL (80.0-100.0); MEAN CORPUSCULAR HGB CONC 33.8 % (32.0-36.0); MONO % 7.6 % (0.0-8.0); NEUT % 68.3 % (16.0-70.0); PLATELET COUNT 123 TH/MM3 (150-450); RED BLOOD COUNT 4.21 MIL/MM3 (4.50-5.90); WHITE BLOOD COUNT 8.4 TH/MM3 (4.0-11.0)
[2016-06-09 07:26] LABS: BICARBONATE 26.3 MEQ/L (21.0-32.0)
[2016-06-09 07:39] LABS: POTASSIUM 2.9 MEQ/L (3.5-5.1)
--- NOTE | 2016-06-09 08:30 | PD.CARD.PN ---
Subjective Subjective Remarks Pt says cp has improved (not gone entirely); still very tremulous Objective Medications Administered Medications Medications (Trade) Dose Ordered Sig/Dana Route PRN Reason Start Time Stop Time Status Last Admin Dose Admin IV Flush (NS Flush) 2 ml BID FLUSH 06/07/16 21:00 06/08/16 20:43 Metoprolol Tartrate (Lopressor) 25 mg BID PO 06/07/16 21:00 06/08/16 20:43 Enoxaparin Sodium (Lovenox Inj) 70 mg Q12H SQ 06/07/16 18:00 06/09/16 05:59 Warfarin Sodium (Coumadin) 5 mg DAILY@1600 PO 06/07/16 17:00 06/08/16 16:09 Lorazepam (Ativan) 1 mg Q4H PRN PO CIWA 8 - 10 06/07/16 16:45 06/08/16 07:56 Lorazepam (Ativan Inj) 1 mg Q4H PRN IV PUSH CIWA 8 - 10 06/07/16 16:45 06/08/16 17:18 Nicotine (Habitrol 21 Mg Patch.24 Hr) 1 patch DAILY TD 06/07/16 18:00 06/08/16 09:47 Miscellaneous Information 1 HS TD 06/07/16 21:00 06/08/16 20:43 Folic Acid (Folate) 1 mg DAILY PO 06/08/16 09:00 06/13/16 08:59 06/08/16 07:56 Thiamine HCl (Vitamin B1) 100 mg DAILY PO 06/08/16 09:00 06/08/16 07:56 Multivitamins/ Minerals Therapeutic (Theragran M Tab) 1 tab DAILY PO 06/08/16 09:00 06/13/16 08:59 06/08/16 07:56 Diltiazem HCl (Cardizem) 60 mg Q6H PO 06/08/16 02:00 06/09/16 02:45 Vital Signs / I&O Vital Signs Date Time Temp Pulse Resp B/P Pulse Ox O2 Delivery O2 Flow Rate FiO2 06/09/16 07:51 21 06/09/16 07:48 97.8 78 17 143/78 95 06/09/16 07:00 66 06/09/16 06:00 72 06/09/16 05:00 67 06/09/16 04:00 72 06/09/16 03:00 97.9 72 17 144/80 95 06/09/16 03:00 69 06/09/16 02:00 67 06/09/16 01:00 69 06/09/16 00:00 67 06/08/16 23:00 69 06/08/16 23:00 99.0 66 20 138/65 96 06/08/16 22:00 75 06/08/16 21:00 76 06/08/16 20:00 78 06/08/16 19:00 98.4 81 20 134/66 92 06/08/16 19:00 84 06/08/16 18:00 79 06/08/16 17:00 81 06/08/16 16:00 84 06/08/16 15:00 97.9 79 18 136/77 92 06/08/16 15:00 80 06/08/16 14:00 80 06/08/16 13:00 71 06/08/16 12:00 85 06/08/16 11:53 93 06/08/16 11:00 98.4 77 15 112/59 93 06/08/16 11:00 66 06/08/16 10:00 59 06/08/16 09:00 60 I/O 06/08/16 06/08/16 06/08/16 06/09/16 06/09/16 06/09/16 07:00 15:00 23:00 07:00 15:00 23:00 Intake Total 960 ml 1200 ml 480 ml Output Total 210 ml 450 ml 400 ml Balance 750 ml 750 ml 80 ml Intake Oral 960 ml 1200 ml 480 ml Output Urine Total 210 ml 450 ml 400 ml Stool Total 0 ml # Voids 2 # Bowel Movements 0 Physical Exam GENERAL: Thin/tremulous (DTs) RESPIRATORY: Clear to auscultation. Breath sounds equal bilaterally. No wheezes , rales, or rhonchi. GASTROINTESTINAL: Abdomen soft, non-tender, nondistended. Normal active bowel sounds MUSCULOSKELETAL: Extremities without clubbing, cyanosis, or edema. NEURO: Alert & Oriented x4 to person, place, time, situation. Moves all ext x4 Laboratory Laboratory Tests Test 06/08/16 06/09/16 10:26 05:25 Prothrombin Time 11.4 SEC 11.4 SEC Prothromb Time International 1.0 RATIO 1.0 RATIO Ratio White Blood Count 8.4 TH/MM3 Red Blood Count 4.21 MIL/MM3 Hemoglobin 13.5 GM/DL Hematocrit 39.8 % Mean Corpuscular Volume 94.6 FL Mean Corpuscular Hemoglobin 32.0 PG Mean Corpuscular Hemoglobin 33.8 % Concent Red Cell Distribution Width 14.0 % Platelet Count 123 TH/MM3 Mean Platelet Volume 9.0 FL Neutrophils (%) (Auto) 68.3 % Lymphocytes (%) (Auto) 20.1 % Monocytes (%) (Auto) 7.6 % Eosinophils (%) (Auto) 3.0 % Basophils (%) (Auto) 1.0 % Neutrophils # (Auto) 5.8 TH/MM3 Lymphocytes # (Auto) 1.7 TH/MM3 Monocytes # (Auto) 0.6 TH/MM3 Eosinophils # (Auto) 0.3 TH/MM3 Basophils # (Auto) 0.1 TH/MM3 CBC Comment DIFF FINAL Differential Comment Sodium Level 139 MEQ/L Potassium Level 2.9 MEQ/L Chloride Level 104 MEQ/L Carbon Dioxide Level 26.3 MEQ/L Anion Gap 9 MEQ/L Blood Urea Nitrogen 13 MG/DL Creatinine 0.66 MG/DL Estimat Glomerular Filtration 120 ML/MIN Rate Random Glucose 124 MG/DL Calcium Level 8.4 MG/DL Imaging Last Impressions Chest X-Ray 06/07/16 1505 Signed Impressions: Service Date/Time: Tuesday, June 07, 2016 15:24 - CONCLUSION: 1. No acute findings. Emphysema. Jerry Ugalde MD Assessment and Plan Problem List: (1) Atrial fibrillation with RVR Assessment and Plan: currently in NSR; on warfarin (2) Elevated troponin Assessment and Plan: likely due to RVR but w/ risk factors, nuc stress when less tremulous, pictures wouldn't be very clear given degree of motion artifact that would occur in his current state (3) DTs (delirium tremens) Assessment and Plan: precautions being taken, very tremulous, but no MS changes ; per medical team (4) COPD (chronic obstructive pulmonary disease) (5) Tobacco abuse disorder Assessment and Plan: counseled at length Assessment and Plan Asked nursing to let Nuclear medicine know when pt's tremors controlled so he can go for stress test. Problem Qualifiers (1) COPD (chronic obstructive pulmonary disease): Qualified Code: J44.9 - Chronic obstructive pulmonary disease, unspecified COPD type Aguilar Tomlin MD Jun 09, 2016 08:30
[2016-06-09] MEDS: THIAMINE HCL 100 MG TAB PO SCH (08:31)
[2016-06-09] MEDS: MULTIVITAMINS/MINERALS THERAPEUTIC TAB PO SCH (08:32)
[2016-06-09] MEDS: FOLIC ACID 1 MG TAB PO SCH (08:32)
[2016-06-09] MEDS: METOPROLOL TARTRATE 25 MG TAB PO SCH ×2 (08:32→20:34)
[2016-06-09] MEDS: SODIUM CHLORIDE 0.9% FLUSH 5 ML FLUSH FLUSH SCH ×2 (08:33→20:33)
[2016-06-09] MEDS: LORazepam 2 MG/ML VIAL IV PUSH PRN ×2 (08:43→15:36)
[2016-06-09] MEDS ORDERED: POTASSIUM CHLORIDE 10 MEQ CONTROLLED RELEASE TAB PO ONE (09:00)
--- NOTE | 2016-06-09 09:12 | HHI.FPPN ---
Subjective Remarks Patient seen and examined this morning. Afebrile vital signs stable. Had a low potassium this morning. Replace with by mouth potassium. Patient is still having tremors from alcohol withdrawal. We'll continue CIWA protocol. Patient reports feeling some chest pain this morning and felt like his heart was racing when that occurred. He understands the plan is to do a stress test once his tremors have resolved. Endorses: Tremors, chest pain Denies: Fever, chills, nausea, vomiting, shortness of breath, headache, abdominal pain, calf pain (Aguilar Jim MD R2) Objective Vitals Vital Signs Date Time Temp Pulse Resp B/P Pulse Ox O2 Delivery O2 Flow Rate FiO2 06/09/16 07:51 21 06/09/16 07:48 97.8 78 17 143/78 95 06/09/16 07:00 66 06/09/16 06:00 72 06/09/16 05:00 67 06/09/16 04:00 72 06/09/16 03:00 97.9 72 17 144/80 95 06/09/16 03:00 69 06/09/16 02:00 67 06/09/16 01:00 69 06/09/16 00:00 67 06/08/16 23:00 69 06/08/16 23:00 99.0 66 20 138/65 96 06/08/16 22:00 75 06/08/16 21:00 76 06/08/16 20:00 78 06/08/16 19:00 98.4 81 20 134/66 92 06/08/16 19:00 84 06/08/16 18:00 79 06/08/16 17:00 81 06/08/16 16:00 84 06/08/16 15:00 97.9 79 18 136/77 92 06/08/16 15:00 80 06/08/16 14:00 80 06/08/16 13:00 71 06/08/16 12:00 85 06/08/16 11:53 93 06/08/16 11:00 98.4 77 15 112/59 93 06/08/16 11:00 66 06/08/16 10:00 59 I/O 06/08/16 06/08/16 06/08/16 06/09/16 06/09/16 06/09/16 07:00 15:00 23:00 07:00 15:00 23:00 Intake Total 960 ml 1200 ml 480 ml Output Total 210 ml 450 ml 400 ml Balance 750 ml 750 ml 80 ml Intake Oral 960 ml 1200 ml 480 ml Output Urine Total 210 ml 450 ml 400 ml Stool Total 0 ml # Voids 2 # Bowel Movements 0 (Aguilar Jim MD R2) Result Diagram: 06/09/16 0525 06/09/16 0525 Imaging Last Impressions Chest X-Ray 06/07/16 1505 Signed Impressions: Service Date/Time: Tuesday, June 07, 2016 15:24 - CONCLUSION: 1. No acute findings. Emphysema. Jerry Ugalde MD Objective Remarks O. CONSTITUTIONAL/GEN: normally nourished, tremulous. He has been given 1 dose of IV Ativan. EYES: conjunctiva normal, PERRLA, EOMI. NECK: Supple LUNGS: Coarse breath sounds throughout, worse in the bases. CARDIOVASCULAR: RR without murmur or gallop. No significant edema. GI/ABD: soft without masses, without organomegaly. Active bowel sounds NEURO: No focal deficits. Tremulous SKIN: color normal, no rashes noted. HEME/LYMPH: no bruising, petechia or significant adenopathy MUSC: back is normal in appearance. Extremities are normal in appearance. PSYCH/MENTAL STATUS: Alert and oriented x 3. Medications and IVs Current Medications Medications (Trade) Dose Ordered Sig/Elmer Route Start Time Stop Time Status Last Admin (NS Flush) 2 ml UNSCH PRN FLUSH 06/07/16 16:45 (NS Flush) 2 ml BID FLUSH 06/07/16 21:00 06/09/16 08:33 (Lopressor) 25 mg BID PO 06/07/16 21:00 06/09/16 08:32 (Lovenox Inj) 70 mg Q12H SQ 06/07/16 18:00 06/09/16 05:59 (Coumadin) 5 mg DAILY@1600 PO 06/07/16 17:00 06/08/16 16:09 (Romazicon Inj) 0.2 mg Q1M PRN IV PUSH 06/07/16 16:45 (Ativan) 1 mg Q4H PRN PO 06/07/16 16:45 06/08/16 07:56 (Ativan Inj) 1 mg Q4H PRN IV PUSH 06/07/16 16:45 06/09/16 08:43 (Ativan) 2 mg Q2H PRN PO 06/07/16 16:45 (Ativan Inj) 2 mg Q2H PRN IV PUSH 06/07/16 16:45 (Ativan Inj) 2 mg Q1H PRN IV PUSH 06/07/16 16:45 (Ativan Inj) 2 mg Q15M PRN IV PUSH 06/07/16 16:45 (Haldol Inj) 2 mg Q15M PRN IM 06/07/16 16:45 (Apresoline Inj) 10 mg Q6H PRN IV 06/07/16 16:45 (Lauren-Colace) 1 tab BID PRN PO 06/07/16 16:45 (Habitrol 21 Mg Patch.24 Hr) 1 patch DAILY TD 06/07/16 18:00 06/08/16 09:47 Miscellaneous Information 1 HS TD 06/07/16 21:00 06/08/16 20:43 (Folate) 1 mg DAILY PO 06/08/16 09:00 06/13/16 08:59 06/09/16 08:32 (Vitamin B1) 100 mg DAILY PO 06/08/16 09:00 06/09/16 08:31 (Theragran M Tab) 1 tab DAILY PO 06/08/16 09:00 06/13/16 08:59 06/09/16 08:32 (Cardizem) 60 mg Q6H PO 06/08/16 02:00 06/09/16 08:31 (Pneumovax-23 Inj) 25 mcg ONCE ONCE IM 06/09/16 10:00 06/09/16 10:01 06/09/16 08:33 (Flu (Quadrivalent) Vaccine Inj) 0.5 ml ONCE ONCE IM 06/09/16 10:00 06/09/16 10:01 (Aguilar Jim MD R2) A/P Assessment and Plan 66-year-old male with history of COPD presents with palpitations. Found to be in atrial fibrillation with RVR. He has subsequently converted and is rate controlled. He has been seen by cardiology and nuclear stress test will be performed when patient is stable from his alcohol withdrawal. Discharge Planning Pending results of nuclear stress test to be done following improvement of alcohol withdrawal. (Aguilar Jim MD R2) Attending Attestation Patient seen and examined. Case reviewed and discussed with the resident team. Agree with plan of care as discussed with me and documented in the resident note. (Yvrose Mcnulty MD) Problem List: (1) Atrial fibrillation with RVR Status: Resolved Plan: No history of atrial fibrillation or heart disease. Has a significant social history of smoking and alcohol abuse. Alcohol level of 298 EKG showed atrial fibrillation with RVR CXR showed no acute findings, emphysema. Given Adenosine, cardizem x2, and digoxin with no resolution of tachycardia [id number] score of 1 -Continue diltiazem 60 mg by mouth every 6 hours -Supplemental O2. -Metoprolol 25 PO BID elmer -2D Echocardiogram -Tele. -TSH, free T4: Within normal limits -Consult cardiology, appreciate recs -Start warfarin and therapeutic lovenox -CBC, BMP ordered for the a.m. (2) COPD (chronic obstructive pulmonary disease) Status: Chronic Plan: History of COPD. Chest x-ray positive for emphysema -Albuterol nebulizer q4H -Duonebs q4H PRN -Supplemental O2 (3) Alcohol abuse Status: Chronic Plan: Drinks 1 pint per day. Alcohol level 298 AST 131, AST 97 -CIWA protocol -Rally pack -Patient is currently going through alcohol withdrawal: Tremulous -Counseled on risks of alcohol abuse and encouraged to use this opportunity to quit drinking alcohol. (4) Tobacco abuse disorder Status: Chronic Plan: Counseled for smoking cessation (5) FEN Status: Chronic Plan: Fluids: none Electrolytes: wnl, continue to monitor Nutrition: heart healthy diet DVT ppx: therapeutic lovenox (Aguilar Jim MD R2) Problem Qualifiers (1) COPD (chronic obstructive pulmonary disease): Qualified Code: J44.9 - Chronic obstructive pulmonary disease, unspecified COPD type Aguilar Jim MD R2 Jun 09, 2016 09:12 Yvrose Mcnulty MD Jun 09, 2016 13:52
[2016-06-09] MEDS ORDERED: PNEUMOCOCCAL POLYVALENT INJ 25 MCG/0.5 ML SYR IM ONE (10:00)
[2016-06-09] MEDS ORDERED: INFLUENZA VIRUS VACCINE (QUADRIVALENT) 0.5 ML SYR IM ONE (10:00)
[2016-06-09] MEDS: NICOTINE 21 MG/24 HR PATCH TD SCH (11:58)
[2016-06-09] MEDS: WARFARIN SOD 5 MG TAB PO SCH (15:35)
[2016-06-09] MEDS: RESP: ALBUTEROL 2.5 MG/3 ML NEB (SCH) NEB ×2 (16:32→20:00)
[2016-06-09] MEDS: LORazepam 1 MG TAB PO PRN (20:34)
[2016-06-09] MEDS: REMOVE OLD NICODERM (NICOTINE) PATCH TD SCH (20:34)
[2016-06-10] VITALS (26 sets, daily range): BP systolic 116–134; BP diastolic 58–74; PULSE 69–89; RESP 18–20; TEMP 98.6–99.3; O2SAT 94–98
[2016-06-10] MEDS: DILTIAZEM HCL 60 MG TAB PO SCH ×4 (02:06→20:00)
[2016-06-10] MEDS: RESP: ALBUTEROL 2.5 MG/IPRATROPIUM 0.5 MG NEB (SCH) NEB ×5 (03:58→23:35)
[2016-06-10 04:21] LABS: MEAN CELL VOLUME 93.5 FL (80.0-100.0); MEAN CORPUSCULAR HEMOGLOBIN 32.1 PG (27.0-34.0); MEAN CORPUSCULAR HGB CONC 34.4 % (32.0-36.0); PLATELET COUNT 119 TH/MM3 (150-450); RED BLOOD COUNT 4.17 MIL/MM3 (4.50-5.90); RED CELL DISTRIBUTION WIDTH 14.1 % (11.6-17.2); REVIEW FLAG FINAL; WHITE BLOOD COUNT 8.7 TH/MM3 (4.0-11.0)
[2016-06-10 04:45] LABS: BICARBONATE 26.7 MEQ/L (21.0-32.0); POTASSIUM 3.3 MEQ/L (3.5-5.1)
[2016-06-10] MEDS: ENOXAPARIN SODIUM 80 MG/0.8 ML SYRINGE SQ SCH ×2 (06:08→17:44)
[2016-06-10] MEDS ORDERED: POTASSIUM CHLORIDE 10 MEQ CONTROLLED RELEASE TAB PO ONE (07:15)
[2016-06-10] MEDS ORDERED: CALCIUM CARBONATE 500 MG CHEWABLE TAB CHEW ONE (07:15)
[2016-06-10] MEDS: RESP: ALBUTEROL 2.5 MG/3 ML NEB (SCH) NEB ×4 (07:30→20:45)
--- NOTE | 2016-06-10 08:21 | PD.CARD.PN ---
Subjective Subjective Remarks No complaints but still very tremulous Objective Medications Administered Medications Medications (Trade) Dose Ordered Sig/Dana Route PRN Reason Start Time Stop Time Status Last Admin Dose Admin IV Flush (NS Flush) 2 ml BID FLUSH 06/07/16 21:00 06/09/16 20:33 Metoprolol Tartrate (Lopressor) 25 mg BID PO 06/07/16 21:00 06/09/16 20:34 Enoxaparin Sodium (Lovenox Inj) 70 mg Q12H SQ 06/07/16 18:00 06/10/16 06:08 Warfarin Sodium (Coumadin) 5 mg DAILY@1600 PO 06/07/16 17:00 06/09/16 15:35 Lorazepam (Ativan) 1 mg Q4H PRN PO CIWA 8 - 10 06/07/16 16:45 06/09/16 20:34 Lorazepam (Ativan Inj) 1 mg Q4H PRN IV PUSH CIWA 8 - 10 06/07/16 16:45 06/09/16 15:36 Nicotine (Habitrol 21 Mg Patch.24 Hr) 1 patch DAILY TD 06/07/16 18:00 06/09/16 11:58 Miscellaneous Information 1 HS TD 06/07/16 21:00 06/09/16 20:34 Folic Acid (Folate) 1 mg DAILY PO 06/08/16 09:00 06/13/16 08:59 06/09/16 08:32 Thiamine HCl (Vitamin B1) 100 mg DAILY PO 06/08/16 09:00 06/09/16 08:31 Multivitamins/ Minerals Therapeutic (Theragran M Tab) 1 tab DAILY PO 06/08/16 09:00 06/13/16 08:59 06/09/16 08:32 Diltiazem HCl (Cardizem) 60 mg Q6H PO 06/08/16 02:00 06/10/16 02:06 Vital Signs / I&O Vital Signs Date Time Temp Pulse Resp B/P Pulse Ox O2 Delivery O2 Flow Rate FiO2 06/10/16 07:03 69 06/10/16 06:00 73 06/10/16 05:00 69 06/10/16 04:00 73 06/10/16 03:30 98.8 74 18 125/64 94 06/10/16 03:00 73 06/10/16 02:00 82 06/10/16 01:00 74 06/10/16 00:00 75 06/10/16 00:00 99.3 75 18 118/68 96 06/09/16 23:00 72 06/09/16 22:00 73 06/09/16 21:00 84 06/09/16 20:00 97.5 83 18 149/74 96 06/09/16 20:00 82 06/09/16 20:00 95 21 06/09/16 19:00 80 06/09/16 18:00 87 06/09/16 17:00 80 06/09/16 16:00 79 06/09/16 15:00 72 06/09/16 15:00 99.6 82 18 128/71 97 06/09/16 14:00 82 06/09/16 13:00 71 06/09/16 12:00 77 06/09/16 11:00 73 06/09/16 11:00 98.0 70 17 128/72 96 06/09/16 10:00 71 06/09/16 09:00 75 I/O 06/09/16 06/09/16 06/09/16 06/10/16 06/10/16 06/10/16 07:00 15:00 23:00 07:00 15:00 23:00 Intake Total 480 ml 1000 ml 240 ml Output Total 400 ml 1250 ml 450 ml Balance 80 ml -250 ml -210 ml Intake Oral 480 ml 1000 ml 240 ml Output Urine Total 400 ml 1250 ml 450 ml Stool Total 0 ml Physical Exam GENERAL: Thin/tremulous (DTs) RESPIRATORY: Clear to auscultation. Breath sounds equal bilaterally. No wheezes , rales, or rhonchi. GASTROINTESTINAL: Abdomen soft, non-tender, nondistended. Normal active bowel sounds MUSCULOSKELETAL: Extremities without clubbing, cyanosis, or edema. NEURO: Alert & Oriented x4 to person, place, time, situation. Moves all ext x4 Laboratory Laboratory Tests Test 06/10/16 03:57 White Blood Count 8.7 TH/MM3 Red Blood Count 4.17 MIL/MM3 Hemoglobin 13.4 GM/DL Hematocrit 39.0 % Mean Corpuscular Volume 93.5 FL Mean Corpuscular Hemoglobin 32.1 PG Mean Corpuscular Hemoglobin 34.4 % Concent Red Cell Distribution Width 14.1 % Platelet Count 119 TH/MM3 Mean Platelet Volume 8.8 FL Sodium Level 140 MEQ/L Potassium Level 3.3 MEQ/L Chloride Level 105 MEQ/L Carbon Dioxide Level 26.7 MEQ/L Anion Gap 8 MEQ/L Blood Urea Nitrogen 9 MG/DL Creatinine 0.60 MG/DL Estimat Glomerular Filtration 134 ML/MIN Rate Random Glucose 120 MG/DL Calcium Level 8.1 MG/DL Imaging Last Impressions Chest X-Ray 06/07/16 1505 Signed Impressions: Service Date/Time: Thursday, June 07, 2016 15:24 - CONCLUSION: 1. No acute findings. Emphysema. Jerry Ugalde MD Assessment and Plan Problem List: (1) Atrial fibrillation with RVR Assessment and Plan: currently in NSR; on warfarin (2) Elevated troponin Assessment and Plan: likely due to RVR but w/ risk factors, nuc stress when less tremulous, pictures wouldn't be very clear given degree of motion artifact that would occur in his current state (3) DTs (delirium tremens) Assessment and Plan: precautions being taken, very tremulous, but no MS changes ; per medical team (4) COPD (chronic obstructive pulmonary disease) (5) Tobacco abuse disorder Assessment and Plan: counseled at length Assessment and Plan Asked nursing to let Nuclear medicine know when pt's tremors controlled so he can go for stress test; will be available PRN, pls call when stress test completed or w/ questions. Problem Qualifiers (1) COPD (chronic obstructive pulmonary disease): Qualified Code: J44.9 - Chronic obstructive pulmonary disease, unspecified COPD type Aguilar Tomlin MD Jun 10, 2016 08:21
[2016-06-10] MEDS: MULTIVITAMINS/MINERALS THERAPEUTIC TAB PO SCH (08:31)
[2016-06-10] MEDS: NICOTINE 21 MG/24 HR PATCH TD SCH (08:31)
[2016-06-10] MEDS: SODIUM CHLORIDE 0.9% FLUSH 5 ML FLUSH FLUSH SCH ×2 (08:32→20:43)
[2016-06-10] MEDS: THIAMINE HCL 100 MG TAB PO SCH (08:32)
[2016-06-10] MEDS: LORazepam 1 MG TAB PO PRN ×2 (08:32→20:42)
[2016-06-10] MEDS: METOPROLOL TARTRATE 25 MG TAB PO SCH ×2 (08:32→20:42)
[2016-06-10] MEDS: FOLIC ACID 1 MG TAB PO SCH (08:32)
--- NOTE | 2016-06-10 09:55 | HHI.FPPN ---
Subjective Remarks Patient seen and examined this morning. No acute events overnight. States he feels lightheaded and weak when getting out of bed. Endorses continued tremors. No nausea/vomiting, fever/chills. No chest pain, SOB, abdominal pain, leg pain. (Valeriano Smith MD R1) Objective Vitals Vital Signs Date Time Temp Pulse Resp B/P Pulse Ox O2 Delivery O2 Flow Rate FiO2 06/10/16 07:03 69 06/10/16 06:00 73 06/10/16 05:00 69 06/10/16 04:00 73 06/10/16 03:30 98.8 74 18 125/64 94 06/10/16 03:00 73 06/10/16 02:00 82 06/10/16 01:00 74 06/10/16 00:00 75 06/10/16 00:00 99.3 75 18 118/68 96 06/09/16 23:00 72 06/09/16 22:00 73 06/09/16 21:00 84 06/09/16 20:00 97.5 83 18 149/74 96 06/09/16 20:00 82 06/09/16 20:00 95 21 06/09/16 19:00 80 06/09/16 18:00 87 06/09/16 17:00 80 06/09/16 16:00 79 06/09/16 15:00 72 06/09/16 15:00 99.6 82 18 128/71 97 06/09/16 14:00 82 06/09/16 13:00 71 06/09/16 12:00 77 06/09/16 11:00 73 06/09/16 11:00 98.0 70 17 128/72 96 06/09/16 10:00 71 I/O 06/09/16 06/09/16 06/09/16 06/10/16 06/10/16 06/10/16 07:00 15:00 23:00 07:00 15:00 23:00 Intake Total 480 ml 1000 ml 240 ml Output Total 400 ml 1250 ml 450 ml Balance 80 ml -250 ml -210 ml Intake Oral 480 ml 1000 ml 240 ml Output Urine Total 400 ml 1250 ml 450 ml Stool Total 0 ml (Valeriano Smith MD R1) Result Diagram: 06/10/16 0357 06/10/16 0357 Objective Remarks O. CONSTITUTIONAL/GEN: normally nourished, tremulous. LUNGS: Coarse breath sounds throughout, scattered wheezes CARDIOVASCULAR: RR without murmur or gallop. No significant edema. GI/ABD: soft without masses, without organomegaly. Active bowel sounds NEURO: No focal deficits. Tremulous SKIN: color normal, no rashes noted. HEME/LYMPH: no bruising, petechia or significant adenopathy MUSC: back is normal in appearance. Extremities are normal in appearance. PSYCH/MENTAL STATUS: Alert and oriented x 3. (Valeriano Smith MD R1) A/P Assessment and Plan 66-year-old male with history of COPD presents with palpitations. Found to be in atrial fibrillation with RVR. He has subsequently converted and is rate controlled. He has been seen by cardiology and nuclear stress test will be performed when patient is stable from his alcohol withdrawal. Discharge Planning Pending results of nuclear stress test to be done following improvement of alcohol withdrawal. (Valeriano Smith MD R1) Attending Attestation Patient seen and examined. Case reviewed and discussed with the resident team. Agree with plan of care as discussed with me and documented in the resident note. (Yvrose Mcnulty MD) Problem List: (1) Atrial fibrillation with RVR Status: Resolved Plan: Normal sinus rhythm after conversion and medical management [id number] score of 1 -Continue diltiazem 60 mg by mouth every 6 hours -Continue metoprolol 25 PO BID elmer -Tele. -Consult cardiology, appreciate recs; recommends stress test when less tremulous -Continue warfarin and therapeutic lovenox -Trending INRs (2) COPD (chronic obstructive pulmonary disease) Status: Chronic Plan: History of COPD. Chest x-ray positive for emphysema -Albuterol nebulizer q4H -Duonebs q4H -Supplemental O2 (3) Alcohol abuse Status: Chronic Plan: Drinks 1 pint per day. Alcohol level 298 on admission AST 131, AST 97 -CIWA protocol -Rally pack -Patient is currently going through alcohol withdrawal: Tremulous -Counseled on risks of alcohol abuse and encouraged to use this opportunity to quit drinking alcohol. (4) Tobacco abuse disorder Status: Chronic Plan: Counseled for smoking cessation (5) FEN Status: Chronic Plan: Fluids: none Electrolytes: hypokalemia, replacing PO Nutrition: heart healthy diet DVT ppx: therapeutic lovenox (Valeriano Smith MD R1) Problem Qualifiers (1) COPD (chronic obstructive pulmonary disease): Qualified Code: J44.9 - Chronic obstructive pulmonary disease, unspecified COPD type Valeriano Smith MD R1 Jun 10, 2016 09:55 Yvrose Mcnulty MD Jun 10, 2016 14:05
[2016-06-10] MEDS: WARFARIN SOD 7.5 MG TAB PO SCH (17:44)
[2016-06-10] MEDS: REMOVE OLD NICODERM (NICOTINE) PATCH TD SCH (21:00)
[2016-06-11] VITALS (24 sets, daily range): BP systolic 113–146; BP diastolic 64–86; PULSE 67–84; RESP 16–20; TEMP 97.5–98.6; O2SAT 95–97
[2016-06-11] MEDS: RESP: ALBUTEROL 2.5 MG/IPRATROPIUM 0.5 MG NEB (SCH) NEB ×5 (03:17→19:53)
[2016-06-11] MEDS: LORazepam 1 MG TAB PO PRN ×2 (03:44→21:00)
[2016-06-11] MEDS: DILTIAZEM HCL 60 MG TAB PO SCH ×4 (03:45→21:00)
[2016-06-11 06:26] LABS: AUTOMATED NEUTROPHIL # 4.5 TH/MM3 (1.8-7.7); BASOPHIL # 0.1 TH/MM3 (0-0.2); BASOPHIL % 1.5 % (0.0-2.0); EOSINOPHIL # 0.8 TH/MM3 (0-0.4); EOSINOPHIL % 10.7 % (0.0-4.0); HEMATOCRIT 41.9 % (39.0-51.0); HEMO FLAGS DIFF FINAL; LYMPH % 15.1 % (9.0-44.0); LYMPHOCYTE # 1.1 TH/MM3 (1.0-4.8); MEAN CORPUSCULAR HEMOGLOBIN 32.1 PG (27.0-34.0); MEAN CORPUSCULAR HGB CONC 33.7 % (32.0-36.0); MONO % 10.6 % (0.0-8.0); NEUT % 62.1 % (16.0-70.0); PLATELET COUNT 145 TH/MM3 (150-450); RED BLOOD COUNT 4.41 MIL/MM3 (4.50-5.90); WHITE BLOOD COUNT 7.3 TH/MM3 (4.0-11.0)
[2016-06-11 06:40] LABS: INTERNATIONAL NORMALIZED RATIO 1.1 RATIO; PROTHROMBIN TIME - PATIENT 11.9 SEC (9.8-11.6)
[2016-06-11 06:55] LABS: BICARBONATE 27.2 MEQ/L (21.0-32.0); POTASSIUM 3.8 MEQ/L (3.5-5.1)
[2016-06-11] MEDS: ENOXAPARIN SODIUM 80 MG/0.8 ML SYRINGE SQ SCH ×2 (06:59→17:26)
[2016-06-11] MEDS: RESP: ALBUTEROL 2.5 MG/3 ML NEB (SCH) NEB ×3 (07:47→15:54)
[2016-06-11] MEDS: SODIUM CHLORIDE 0.9% FLUSH 5 ML FLUSH FLUSH SCH ×2 (07:51→21:00)
[2016-06-11] MEDS: FOLIC ACID 1 MG TAB PO SCH (08:31)
[2016-06-11] MEDS: METOPROLOL TARTRATE 25 MG TAB PO SCH ×2 (08:40→21:00)
[2016-06-11] MEDS: NICOTINE 21 MG/24 HR PATCH TD SCH (08:40)
[2016-06-11] MEDS: THIAMINE HCL 100 MG TAB PO SCH (08:40)
[2016-06-11] MEDS: MULTIVITAMINS/MINERALS THERAPEUTIC TAB PO SCH (08:40)
--- NOTE | 2016-06-11 08:47 | HHI.FPPN ---
Subjective Remarks Patient seen and examined this morning. Afebrile vital signs stable. Still requiring by mouth Ativan due to tremors. Understands the plan is to await completion of withdrawal and further tremors to stop then he will get a nuclear stress test. He understands again plan and agrees with it. His main complaint is still having tremors, as well as feels dizzy when he tries to get up. Denies any chest pain at this time. Otherwise she is doing fine and has no other complaints. Endorses: dizzy, tremors Denies: Fever, chills, nausea, vomiting, shortness of breath, chest pain, headache, abdominal pain, calf pain (Aguilar Jim MD R2) Objective Vitals Vital Signs Date Time Temp Pulse Resp B/P Pulse Ox O2 Delivery O2 Flow Rate FiO2 06/11/16 07:00 98.3 06/11/16 06:20 74 06/11/16 05:00 74 06/11/16 04:00 98.6 67 20 136/77 96 06/11/16 04:00 74 06/11/16 03:00 68 06/11/16 02:00 72 06/11/16 01:00 69 06/11/16 00:00 77 06/11/16 00:00 98.6 67 20 118/69 96 06/10/16 23:00 77 06/10/16 22:00 88 06/10/16 21:00 89 06/10/16 20:38 98 21 06/10/16 20:00 98.7 82 20 134/74 96 06/10/16 20:00 84 06/10/16 19:00 89 06/10/16 18:00 80 06/10/16 17:00 82 06/10/16 16:00 84 06/10/16 16:00 98.9 78 18 116/63 94 06/10/16 14:00 80 06/10/16 13:00 78 06/10/16 12:50 94 21 06/10/16 12:00 84 06/10/16 12:00 98.6 78 18 124/68 94 06/10/16 11:00 78 06/10/16 10:00 73 06/10/16 09:00 69 I/O 06/10/16 06/10/16 06/10/16 06/11/1617 2/15/17 07:00 15:00 23:00 07:00 15:00 23:00 Intake Total 240 ml 725 ml 640 ml Output Total 450 ml 880 ml 850 ml Balance -210 ml -155 ml -210 ml Intake Oral 240 ml 725 ml 640 ml Output Urine Total 450 ml 880 ml 850 ml Stool Total 0 ml (Aguilar Jim MD R2) Result Diagram: 06/11/16 0555 06/11/16 0555 Imaging Last Impressions Chest X-Ray 06/07/16 1505 Signed Impressions: Service Date/Time: Tuesday, June 07, 2016 15:24 - CONCLUSION: 1. No acute findings. Emphysema. Jerry Ugalde MD Objective Remarks O. CONSTITUTIONAL/GEN: normally nourished, tremulous. LUNGS: Coarse breath sounds throughout, scattered wheezes CARDIOVASCULAR: RR without murmur or gallop. No significant edema. GI/ABD: soft without masses, without organomegaly. Active bowel sounds NEURO: No focal deficits. Tremulous SKIN: color normal, no rashes noted. HEME/LYMPH: no bruising, petechia or significant adenopathy MUSC: back is normal in appearance. Extremities are normal in appearance. PSYCH/MENTAL STATUS: Alert and oriented x 3. Medications and IVs Current Medications Medications (Trade) Dose Ordered Sig/Elmer Route Start Time Stop Time Status Last Admin (NS Flush) 2 ml UNSCH PRN FLUSH 06/07/16 16:45 (NS Flush) 2 ml BID FLUSH 06/07/16 21:00 06/10/16 20:43 (Lopressor) 25 mg BID PO 06/07/16 21:00 06/11/16 08:40 (Lovenox Inj) 70 mg Q12H SQ 06/07/16 18:00 06/11/16 06:59 (Romazicon Inj) 0.2 mg Q1M PRN IV PUSH 06/07/16 16:45 (Ativan) 1 mg Q4H PRN PO 06/07/16 16:45 06/11/16 03:44 (Ativan Inj) 1 mg Q4H PRN IV PUSH 06/07/16 16:45 06/09/16 15:36 (Ativan) 2 mg Q2H PRN PO 06/07/16 16:45 (Ativan Inj) 2 mg Q2H PRN IV PUSH 06/07/16 16:45 (Ativan Inj) 2 mg Q1H PRN IV PUSH 06/07/16 16:45 (Ativan Inj) 2 mg Q15M PRN IV PUSH 06/07/16 16:45 (Haldol Inj) 2 mg Q15M PRN IM 06/07/16 16:45 (Apresoline Inj) 10 mg Q6H PRN IV 06/07/16 16:45 (Lauren-Colace) 1 tab BID PRN PO 06/07/16 16:45 (Habitrol 21 Mg Patch.24 Hr) 1 patch DAILY TD 06/07/16 18:00 06/11/16 08:40 Miscellaneous Information 1 HS TD 06/07/16 21:00 06/10/16 21:00 (Folate) 1 mg DAILY PO 06/08/16 09:00 06/13/16 08:59 06/11/16 08:31 (Vitamin B1) 100 mg DAILY PO 06/08/16 09:00 06/11/16 08:40 (Theragran M Tab) 1 tab DAILY PO 06/08/16 09:00 06/13/16 08:59 06/11/16 08:40 (Cardizem) 60 mg Q6H PO 06/08/16 02:00 06/11/16 08:30 (Coumadin) 7.5 mg DAILY@16 PO 06/10/16 16:00 06/10/16 17:44 (Aguilar Jim MD R2) A/P Assessment and Plan 66-year-old male with history of COPD presents with palpitations. Found to be in atrial fibrillation with RVR. He has subsequently converted and is rate controlled. He has been seen by cardiology and nuclear stress test will be performed when patient is stable from his alcohol withdrawal. Discharge Planning Pending results of nuclear stress test to be done following improvement of alcohol withdrawal. (Aguilar Jim MD R2) Attending Attestation Patient seen and examined. Case reviewed and discussed with the resident team. Agree with plan of care as discussed with me and documented in the resident note. (Yvrose Mcnulty MD) Problem List: (1) Atrial fibrillation with RVR Status: Resolved Plan: Normal sinus rhythm after conversion and medical management [id number] score of 1 -Continue diltiazem 60 mg by mouth every 6 hours -Continue metoprolol 25 PO BID elmer -Tele. -Consult cardiology, appreciate recs; recommends nuclear stress test when less tremulous -Continue warfarin and therapeutic lovenox -Trending INRs (2) COPD (chronic obstructive pulmonary disease) Status: Chronic Plan: History of COPD. Chest x-ray positive for emphysema -Albuterol nebulizer q4H -Duonebs q4H -Supplemental O2 (3) Alcohol abuse Status: Chronic Plan: Drinks 1 pint per day. Alcohol level 298 on admission AST 131, AST 97 -CIWA protocol -Rally pack -Patient is currently going through alcohol withdrawal: Tremulous -Counseled on risks of alcohol abuse and encouraged to use this opportunity to quit drinking alcohol. (4) Tobacco abuse disorder Status: Chronic Plan: Counseled for smoking cessation (5) FEN Status: Chronic Plan: Heart healthy diet Fluids: none Electrolytes: hypokalemia, replacing PO Nutrition: heart healthy diet DVT ppx: therapeutic lovenox (Aguilar Jim MD R2) Problem Qualifiers (1) COPD (chronic obstructive pulmonary disease): Qualified Code: J44.9 - Chronic obstructive pulmonary disease, unspecified COPD type Aguilar Jim MD R2 Jun 11, 2016 08:47 Yvrose Mcnulty MD Jun 11, 2016 14:27
[2016-06-11] MEDS: WARFARIN SOD 7.5 MG TAB PO SCH (14:22)
[2016-06-11] MEDS: REMOVE OLD NICODERM (NICOTINE) PATCH TD SCH (21:00)
[2016-06-12] VITALS (25 sets, daily range): BP systolic 104–164; BP diastolic 56–83; PULSE 67–97; RESP 17–25; TEMP 97.3–98; O2SAT 93–97
[2016-06-12] MEDS: RESP: ALBUTEROL 2.5 MG/IPRATROPIUM 0.5 MG NEB (SCH) NEB ×8 (00:36→23:41)
[2016-06-12] MEDS: DILTIAZEM HCL 60 MG TAB PO SCH ×4 (02:00→20:35)
[2016-06-12] MEDS: LORazepam 1 MG TAB PO PRN ×2 (04:51→14:12)
[2016-06-12 05:54] LABS: INTERNATIONAL NORMALIZED RATIO 1.2 RATIO; PROTHROMBIN TIME - PATIENT 13.6 SEC (9.8-11.6)
[2016-06-12] MEDS: MULTIVITAMINS/MINERALS THERAPEUTIC TAB PO SCH (08:05)
[2016-06-12] MEDS: METOPROLOL TARTRATE 25 MG TAB PO SCH ×2 (08:05→21:11)
[2016-06-12] MEDS: ENOXAPARIN SODIUM 80 MG/0.8 ML SYRINGE SQ SCH ×2 (08:05→17:38)
[2016-06-12] MEDS: FOLIC ACID 1 MG TAB PO SCH (08:05)
[2016-06-12] MEDS: THIAMINE HCL 100 MG TAB PO SCH (08:05)
[2016-06-12] MEDS: NICOTINE 21 MG/24 HR PATCH TD SCH (08:06)
[2016-06-12] MEDS: SODIUM CHLORIDE 0.9% FLUSH 5 ML FLUSH FLUSH SCH ×2 (09:00→21:11)
--- NOTE | 2016-06-12 11:48 | HHI.FPPN ---
Subjective Remarks Patient seen and examined this morning. No acute events overnight. States he feels improved today. Still having tremors, but states they are improved. Some occasional palpitations, but heart rate is controlled. States he is interested in alcohol rehab after discharge. Breathing is stable. Denies abdominal pain, leg pain. (Valeriano Smith MD R1) Objective Vitals Vital Signs Date Time Temp Pulse Resp B/P Pulse Ox O2 Delivery O2 Flow Rate FiO2 06/12/16 08:38 97 21 06/12/16 08:00 97.5 93 20 149/83 95 06/12/16 06:16 73 06/12/16 05:00 98.0 85 20 164/79 96 06/12/16 05:00 72 06/12/16 04:24 67 06/12/16 03:04 78 06/12/16 02:00 69 06/12/16 01:00 78 06/12/16 00:00 98.0 69 20 119/57 96 06/12/16 00:00 78 06/11/16 23:00 78 06/11/16 22:00 79 06/11/16 21:00 78 06/11/16 20:00 77 06/11/16 20:00 97.5 72 20 130/71 96 06/11/16 19:00 77 06/11/16 18:00 72 06/11/16 17:00 73 06/11/16 16:00 72 06/11/16 15:00 74 06/11/16 15:00 98.5 84 18 123/86 95 06/11/16 14:00 81 06/11/16 13:00 78 06/11/16 12:00 81 I/O 06/11/16 06/11/16 06/11/16 06/12/16 06/12/16 06/12/16 07:00 15:00 23:00 07:00 15:00 23:00 Intake Total 640 ml 800 ml 420 ml Output Total 850 ml 0 ml 650 ml Balance -210 ml 800 ml -230 ml Intake Oral 640 ml 800 ml 420 ml Output Urine Total 850 ml 650 ml Stool Total 0 ml # Voids 5 (Valeriano Smith MD R1) Result Diagram: 06/11/16 0555 06/11/16 0555 Objective Remarks O. CONSTITUTIONAL/GEN: normally nourished, tremulous. LUNGS: Coarse breath sounds throughout, scattered wheezes CARDIOVASCULAR: RR without murmur or gallop. No significant edema. GI/ABD: soft without masses, without organomegaly. Active bowel sounds NEURO: No focal deficits. Tremulous SKIN: color normal, no rashes noted. HEME/LYMPH: no bruising, petechia or significant adenopathy MUSC: back is normal in appearance. Extremities are normal in appearance. PSYCH/MENTAL STATUS: Alert and oriented x 3. (Valeriano Smith MD R1) A/P Assessment and Plan 66-year-old male with history of COPD presents with palpitations. Found to be in atrial fibrillation with RVR. He has subsequently converted and is rate controlled. He has been seen by cardiology and nuclear stress test will be performed when patient is stable from his alcohol withdrawal. Discharge Planning Pending results of nuclear stress test to be done following improvement of alcohol withdrawal. (Valeriano Smith MD R1) Attending Attestation Patient seen and examined. Case reviewed and discussed with the resident team. Agree with plan of care as discussed with me and documented in the resident note. (Yvrose Mcnulty MD) Problem List: (1) Atrial fibrillation with RVR Status: Resolved Plan: Normal sinus rhythm after conversion and medical management [id number] score of 1 -Continue diltiazem 60 mg by mouth every 6 hours -Continue metoprolol 25 PO BID elmer -Tele. -Consult cardiology, appreciate recs; recommends nuclear stress test when less tremulous -Continue warfarin and therapeutic lovenox -Trending INRs (2) COPD (chronic obstructive pulmonary disease) Status: Chronic Plan: History of COPD. Chest x-ray positive for emphysema -Albuterol nebulizer q4H -Duonebs q4H -Supplemental O2 (3) Alcohol abuse Status: Chronic Plan: Drinks 1 pint per day. Alcohol level 298 on admission AST 131, AST 97 -CIWA protocol -Rally pack -Patient is currently going through alcohol withdrawal: Tremulous -Counseled on risks of alcohol abuse -States he is interested in rehab (4) Tobacco abuse disorder Status: Chronic Plan: Counseled for smoking cessation (5) FEN Status: Chronic Plan: Heart healthy diet Fluids: none Electrolytes: hypokalemia, replacing PO Nutrition: heart healthy diet DVT ppx: therapeutic lovenox (Valeriano Smith MD R1) Problem List: (1) Atrial fibrillation with RVR Status: Resolved Plan: Normal sinus rhythm after conversion and medical management [id number] score of 1 -Continue diltiazem 60 mg by mouth every 6 hours -Continue metoprolol 25 PO BID elmer -Tele. -Consult cardiology, appreciate recs; recommends nuclear stress test when less tremulous -Continue warfarin and therapeutic lovenox -Trending INRs (2) COPD (chronic obstructive pulmonary disease) Status: Chronic Plan: History of COPD. Chest x-ray positive for emphysema -Albuterol nebulizer q4H -Duonebs q4H -Supplemental O2 (3) Alcohol abuse Status: Chronic Plan: Drinks 1 pint per day. Alcohol level 298 on admission AST 131, AST 97 -CIWA protocol -Rally pack -Patient is currently going through alcohol withdrawal: Tremulous -Counseled on risks of alcohol abuse -States he is interested in rehab (4) Tobacco abuse disorder Status: Chronic Plan: Counseled for smoking cessation (5) FEN Status: Chronic Plan: Heart healthy diet Fluids: none Electrolytes: hypokalemia, replacing PO Nutrition: heart healthy diet DVT ppx: therapeutic lovenox (Yvrose Mcnulty MD) Problem Qualifiers (1) COPD (chronic obstructive pulmonary disease): Qualified Code: J44.9 - Chronic obstructive pulmonary disease, unspecified COPD type Valeriano Smith MD R1 Jun 12, 2016 11:48 Yvrose Mcnulty MD Jun 12, 2016 11:56
[2016-06-12] MEDS: WARFARIN SOD 7.5 MG TAB PO SCH (15:58)
[2016-06-12] MEDS: REMOVE OLD NICODERM (NICOTINE) PATCH TD SCH (21:00)
[2016-06-13] VITALS (25 sets, daily range): BP systolic 117–138; BP diastolic 57–75; PULSE 68–79; RESP 18–22; TEMP 97.4–97.6; O2SAT 95–98
[2016-06-13] MEDS: DILTIAZEM HCL 60 MG TAB PO SCH ×4 (02:00→20:08)
[2016-06-13] MEDS: RESP: ALBUTEROL 2.5 MG/IPRATROPIUM 0.5 MG NEB (SCH) NEB ×2 (03:18→08:04)
[2016-06-13 05:40] LABS: AUTOMATED NEUTROPHIL # 3.8 TH/MM3 (1.8-7.7); BASOPHIL # 0.1 TH/MM3 (0-0.2); BASOPHIL % 1.8 % (0.0-2.0); EOSINOPHIL # 0.9 TH/MM3 (0-0.4); EOSINOPHIL % 12.6 % (0.0-4.0); HEMATOCRIT 41.2 % (39.0-51.0); HEMO FLAGS DIFF FINAL; LYMPH % 16.7 % (9.0-44.0); LYMPHOCYTE # 1.2 TH/MM3 (1.0-4.8); MEAN CELL VOLUME 94.9 FL (80.0-100.0); MEAN CORPUSCULAR HEMOGLOBIN 32.3 PG (27.0-34.0); MONO % 16.3 % (0.0-8.0); NEUT % 52.6 % (16.0-70.0); PLATELET COUNT 212 TH/MM3 (150-450); RED BLOOD COUNT 4.34 MIL/MM3 (4.50-5.90); RED CELL DISTRIBUTION WIDTH 14.1 % (11.6-17.2); WHITE BLOOD COUNT 7.3 TH/MM3 (4.0-11.0)
[2016-06-13 05:52] LABS: BICARBONATE 28.5 MEQ/L (21.0-32.0); INTERNATIONAL NORMALIZED RATIO 1.3 RATIO; POTASSIUM 3.9 MEQ/L (3.5-5.1)
[2016-06-13] MEDS: ENOXAPARIN SODIUM 80 MG/0.8 ML SYRINGE SQ SCH ×2 (06:26→17:45)
[2016-06-13] MEDS: METOPROLOL TARTRATE 25 MG TAB PO SCH ×2 (08:50→21:25)
[2016-06-13] MEDS: SODIUM CHLORIDE 0.9% FLUSH 5 ML FLUSH FLUSH SCH ×2 (08:50→21:26)
[2016-06-13] MEDS: NICOTINE 21 MG/24 HR PATCH TD SCH (08:50)
[2016-06-13] MEDS: THIAMINE HCL 100 MG TAB PO SCH (08:50)
[2016-06-13] MEDS ORDERED: RESP: ALBUTEROL 2.5 MG/IPRATROPIUM 0.5 MG NEB (PRN) NEB (09:00)
--- NOTE | 2016-06-13 12:17 | HHI.FPPN ---
Subjective Remarks Patient seen, examined and discussed with and the case coordinator. This is a 66-year-old male who was admitted for palpitations and was clearly withdrawing from alcohol. He admitted to drinking at least a pint of whiskey every day. Smokes heavily as well. Since hospitalized, he has improved daily, has not had any seizures, and his tremulousness has significantly improved. He reports last night that he had some palpitations which she describes as bubbles in his heart. No pain however and no shortness of breath. He has expressed interest in alcohol rehabilitation and admits freely that he is unable to do this without help. We spoke with the case coordinator and she will provide him with information on outpatient rehabilitation programs. This morning, he had breakfast at 8 AM but has not had any caffeine today, and no food or liquids since breakfast. Objective Vitals Vital Signs Date Time Temp Pulse Resp B/P Pulse Ox O2 Delivery O2 Flow Rate FiO2 06/13/16 08:30 97.4 77 20 132/66 95 06/13/16 08:07 96 Nasal Cannula 2.00 06/13/16 06:00 71 06/13/16 05:00 73 06/13/16 04:00 72 06/13/16 03:00 70 06/13/16 03:00 97.6 76 22 129/69 97 06/13/16 02:00 74 06/13/16 01:00 74 06/13/16 00:00 77 06/12/16 23:00 97.8 82 25 112/56 93 06/12/16 23:00 87 06/12/16 22:00 96 06/12/16 21:00 76 06/12/16 20:00 92 06/12/16 19:00 92 06/12/16 19:00 97.6 92 25 122/71 95 06/12/16 18:00 93 06/12/16 17:08 97 06/12/16 16:00 84 06/12/16 16:00 97.3 85 17 129/73 95 06/12/16 15:00 83 06/12/16 14:00 75 06/12/16 13:00 76 I/O 06/12/16 06/12/16 06/12/16 06/13/16 06/13/16 06/13/16 07:00 15:00 23:00 07:00 15:00 23:00 Intake Total 420 ml 840 ml 480 ml Output Total 650 ml Balance -230 ml 840 ml 480 ml Intake Oral 420 ml 840 ml 480 ml Output Urine Total 650 ml # Voids 5 3 Result Diagram: 06/13/16 0518 06/13/16 0518 Other Results Laboratory Tests Test 06/13/16 05:18 White Blood Count 7.3 TH/MM3 Red Blood Count 4.34 MIL/MM3 Hemoglobin 14.0 GM/DL Hematocrit 41.2 % Mean Corpuscular Volume 94.9 FL Mean Corpuscular Hemoglobin 32.3 PG Mean Corpuscular Hemoglobin 34.0 % Concent Red Cell Distribution Width 14.1 % Platelet Count 212 TH/MM3 Mean Platelet Volume 7.9 FL Neutrophils (%) (Auto) 52.6 % Lymphocytes (%) (Auto) 16.7 % Monocytes (%) (Auto) 16.3 % Eosinophils (%) (Auto) 12.6 % Basophils (%) (Auto) 1.8 % Neutrophils # (Auto) 3.8 TH/MM3 Lymphocytes # (Auto) 1.2 TH/MM3 Monocytes # (Auto) 1.2 TH/MM3 Eosinophils # (Auto) 0.9 TH/MM3 Basophils # (Auto) 0.1 TH/MM3 CBC Comment DIFF FINAL Differential Comment Prothrombin Time 14.0 SEC Prothromb Time International 1.3 RATIO Ratio Sodium Level 138 MEQ/L Potassium Level 3.9 MEQ/L Chloride Level 102 MEQ/L Carbon Dioxide Level 28.5 MEQ/L Anion Gap 8 MEQ/L Blood Urea Nitrogen 24 MG/DL Creatinine 0.78 MG/DL Estimat Glomerular Filtration 99 ML/MIN Rate Random Glucose 117 MG/DL Calcium Level 8.6 MG/DL Objective Remarks O. CONSTITUTIONAL/GEN: normally nourished, tremulousness today only with intention. LUNGS: Coarse breath sounds throughout, scattered wheezes CARDIOVASCULAR: RR without murmur or gallop. No significant edema. GI/ABD: soft without masses, without organomegaly. Active bowel sounds NEURO: No focal deficits. Tremulousness improved SKIN: color normal, no rashes noted. HEME/LYMPH: no bruising, petechia or significant adenopathy MUSC: back is normal in appearance. Extremities are normal in appearance. PSYCH/MENTAL STATUS: Alert and oriented x 3. A/P Assessment and Plan 66-year-old male with history of COPD presents with palpitations. Found to be in atrial fibrillation with RVR. He has subsequently converted and is rate controlled. He has been seen by cardiology and nuclear stress test will be performed when patient is stable from his alcohol withdrawal. Discharge Planning Pending results of nuclear stress test which was ordered today Attending Attestation Patient seen and examined. Case reviewed and discussed with the resident team. Agree with plan of care as discussed with me and documented in the resident note. Problem List: (1) Atrial fibrillation with RVR Status: Resolved Plan: Normal sinus rhythm after conversion and medical management [id number] score of 1 -Continue diltiazem 60 mg by mouth every 6 hours -Continue metoprolol 25 PO BID elmer -Tele. -Consult cardiology, appreciate recs; have ordered a nuclear stress test for today as patient's tremulousness has essentially resolved -Continue warfarin and therapeutic lovenox; INR today is 1.3 -Trending INRs (2) COPD (chronic obstructive pulmonary disease) Status: Chronic Plan: History of COPD. Chest x-ray positive for emphysema -Albuterol nebulizer [id number] (3) Alcohol abuse Status: Chronic Plan: Drinks 1 pint per day. Alcohol level 298 on admission AST 131, AST 97 -CIWA protocol -Rally pack -Patient has withdrawn completely. -Counseled on risks of alcohol abuse -States he is interested in rehab (4) Tobacco abuse disorder Status: Chronic Plan: Counseled for smoking cessation (5) FEN Status: Chronic Plan: Heart healthy diet Fluids: none Electrolytes: hypokalemia, replacing PO Nutrition: heart healthy diet DVT ppx: therapeutic lovenox, is on Coumadin with INR today of 1.3 Problem Qualifiers (1) COPD (chronic obstructive pulmonary disease): Qualified Code: J44.9 - Chronic obstructive pulmonary disease, unspecified COPD type Yvrose Mcnulty MD Jun 13, 2016 12:17
[2016-06-13] MEDS ORDERED: REGADENOSON INJ 0.4 MG/5 ML SYR ONE (14:11)
--- NOTE | 2016-06-13 16:14 | RADRPT ---
EXAM DATE/TIME: 06/13/2016 13:10 [facility] COMPARISON: No previous studies available for comparison. INDICATIONS : Left chest pain. Atrial fibrillation. DOSE: 27.1 mCi Tc99m Myoview at stress. 8.2 mCi Tc99m Myoview at rest. 0.4 mg Lexiscan STRESS SYMPTOMS: Chest tightness and nausea. EJECTION FRACTION: 46% MEDICAL HISTORY : Chronic obstructive pulmonary disease. Stroke Smoker. SURGICAL HISTORY : None. ENCOUNTER: Initial ACUITY: 1 day PAIN SCALE: 4/10 LOCATION: Left chest TECHNIQUE: The patient underwent pharmacologic stress with infusion of prescribed dose. Continuous ECG tracing was monitored during stress. Gated SPECT imaging was performed after stress and conventional SPECT i maging was performed at rest. The examination was performed on a SPECT/CT scanner, both attenuation and non-corrected datasets were reviewed. FINDINGS: The best therapeutic myocardium is the lateral and septal quintana. There is an small fixed defect in t he anterior wall with normal wall motion. There is no redistribution to suggest ischemia. Ejection fraction is 6%. CONCLUSION: Minimally depressed ejection fraction without stress-induced ischemia. RISK CATEGORY: Low (<1% Annual Mortality Rate) Johnnie Benitez MD FACR on June 13, 2016 at 15:59 Board Certified Radiologist. This report was verified electronically.
[2016-06-13] MEDS: WARFARIN SOD 7.5 MG TAB PO SCH (16:29)
[2016-06-13] MEDS: REMOVE OLD NICODERM (NICOTINE) PATCH TD SCH (21:00)
[2016-06-14] VITALS (13 sets, daily range): BP systolic 122–142; BP diastolic 69–78; PULSE 62–75; RESP 18–20; TEMP 97.8–98; O2SAT 94
[2016-06-14] MEDS: DILTIAZEM HCL 60 MG TAB PO SCH (02:10)
[2016-06-14 06:03] LABS: AUTOMATED NEUTROPHIL # 3.1 TH/MM3 (1.8-7.7); BASOPHIL # 0.1 TH/MM3 (0-0.2); BASOPHIL % 2.2 % (0.0-2.0); EOSINOPHIL # 0.8 TH/MM3 (0-0.4); EOSINOPHIL % 12.8 % (0.0-4.0); HEMATOCRIT 41.8 % (39.0-51.0); HEMO FLAGS DIFF FINAL; LYMPH % 20.6 % (9.0-44.0); LYMPHOCYTE # 1.3 TH/MM3 (1.0-4.8); MEAN CELL VOLUME 93.8 FL (80.0-100.0); MEAN CORPUSCULAR HEMOGLOBIN 32.3 PG (27.0-34.0); MEAN CORPUSCULAR HGB CONC 34.4 % (32.0-36.0); MONO % 16.4 % (0.0-8.0); PLATELET COUNT 235 TH/MM3 (150-450); RED BLOOD COUNT 4.45 MIL/MM3 (4.50-5.90); RED CELL DISTRIBUTION WIDTH 13.5 % (11.6-17.2); WHITE BLOOD COUNT 6.5 TH/MM3 (4.0-11.0)
[2016-06-14] MEDS: ENOXAPARIN SODIUM 80 MG/0.8 ML SYRINGE SQ SCH (06:21)
[2016-06-14 06:30] LABS: BICARBONATE 28.3 MEQ/L (21.0-32.0); POTASSIUM 4.2 MEQ/L (3.5-5.1)
[2016-06-14 06:38] LABS: INTERNATIONAL NORMALIZED RATIO 1.3 RATIO; PROTHROMBIN TIME - PATIENT 14.2 SEC (9.8-11.6)
--- NOTE | 2016-06-14 08:12 | HHI.FPPN ---
Subjective Remarks Patient seen and examined this morning. Afebrile vital signs stable. Patient did not receive Ativan overnight. This morning he reports that he is feeling better other than some mild chest pain. His chest is tender to palpation and says that is similar to the pain he is feeling. Explained to him that this is likely costochondritis from coughing. Informed him that Tylenol will help relieving the pain. Discussed possibility of going home as his nuclear stress test was negative, he is okay with this plan though he would like to go to an alcoholic rehabilitation facility. Will discuss with case management possibility of going to rehabilitation. Endorses: Tremors, chest pain Denies: Fever, chills, nausea, vomiting, shortness of breath, headache, abdominal pain, calf pain (Aguilar Jim MD R2) Objective Vitals Vital Signs Date Time Temp Pulse Resp B/P Pulse Ox O2 Delivery O2 Flow Rate FiO2 06/14/16 06:00 75 06/14/16 05:00 62 06/14/16 04:00 62 06/14/16 03:00 98.0 70 18 122/69 94 06/14/16 03:00 67 06/14/16 02:00 70 06/14/16 01:00 68 06/14/16 00:00 74 06/13/16 23:00 97.6 71 18 135/75 95 06/13/16 23:00 74 06/13/16 22:00 75 06/13/16 21:00 77 06/13/16 20:00 75 06/13/16 19:00 97.6 73 18 135/73 95 06/13/16 19:00 73 06/13/16 18:00 74 06/13/16 17:00 71 06/13/16 16:00 68 06/13/16 15:57 68 06/13/16 15:00 97.4 72 20 138/69 98 06/13/16 12:17 72 06/13/16 12:00 97.5 71 20 117/57 97 06/13/16 11:00 79 06/13/16 10:00 73 06/13/16 09:00 75 06/13/16 08:30 97.4 77 20 132/66 95 06/13/16 08:07 96 Nasal Cannula 2.00 I/O 2/17/17 06/13/16 06/13/16 06/14/16 06/14/16 06/14/16 07:00 15:00 23:00 07:00 15:00 23:00 Intake Total 480 ml 840 ml 960 ml Balance 480 ml 840 ml 960 ml Intake Oral 480 ml 840 ml 960 ml # Voids 3 3 3 # Bowel Movements 1 0 (Aguilar Jim MD R2) Result Diagram: 06/14/16 0536 06/14/16 0536 Imaging Last Impressions Myocardial Perfusion Scan Nuc Med 06/13/16 0000 Signed Impressions: Service Date/Time: Monday, June 13, 2016 13:10 - CONCLUSION: Minimally depressed ejection fraction without stress-induced ischemia. RISK CATEGORY: Low (<1%% Annual Mortality Rate) Johnnie Benitez MD FACR Chest X-Ray 06/07/16 1505 Signed Impressions: Service Date/Time: Tuesday, June 07, 2016 15:24 - CONCLUSION: 1. No acute findings. Emphysema. Jerry Ugalde MD Objective Remarks O. CONSTITUTIONAL/GEN: normally nourished, tremulousness today only with intention. LUNGS: Coarse breath sounds throughout, scattered wheezes CARDIOVASCULAR: RR without murmur or gallop. No significant edema. GI/ABD: soft without masses, without organomegaly. Active bowel sounds NEURO: No focal deficits. Tremulousness improved SKIN: color normal, no rashes noted. HEME/LYMPH: no bruising, petechia or significant adenopathy MUSC: back is normal in appearance. Extremities are normal in appearance. PSYCH/MENTAL STATUS: Alert and oriented x 3. Medications and IVs Current Medications Medications (Trade) Dose Ordered Sig/Dana Route Start Time Stop Time Status Last Admin (NS Flush) 2 ml UNSCH PRN FLUSH 06/07/16 16:45 (NS Flush) 2 ml BID FLUSH 06/07/16 21:00 06/13/16 21:26 (Lopressor) 25 mg BID PO 06/07/16 21:00 06/13/16 21:25 (Lovenox Inj) 70 mg Q12H SQ 06/07/16 18:00 06/14/16 06:21 (Romazicon Inj) 0.2 mg Q1M PRN IV PUSH 06/07/16 16:45 (Ativan) 1 mg Q4H PRN PO 06/07/16 16:45 06/12/16 14:12 (Ativan Inj) 1 mg Q4H PRN IV PUSH 06/07/16 16:45 06/09/16 15:36 (Ativan) 2 mg Q2H PRN PO 06/07/16 16:45 (Ativan Inj) 2 mg Q2H PRN IV PUSH 06/07/16 16:45 (Ativan Inj) 2 mg Q1H PRN IV PUSH 06/07/16 16:45 (Ativan Inj) 2 mg Q15M PRN IV PUSH 06/07/16 16:45 (Haldol Inj) 2 mg Q15M PRN IM 06/07/16 16:45 (Apresoline Inj) 10 mg Q6H PRN IV 06/07/16 16:45 (Lauren-Colace) 1 tab BID PRN PO 06/07/16 16:45 (Habitrol 21 Mg Patch.24 Hr) 1 patch DAILY TD 06/07/16 18:00 06/13/16 08:50 Miscellaneous Information 1 HS TD 06/07/16 21:00 06/13/16 21:00 (Vitamin B1) 100 mg DAILY PO 06/08/16 09:00 06/13/16 08:50 (Cardizem) 60 mg Q6H PO 06/08/16 02:00 06/14/16 02:10 (Coumadin) 7.5 mg DAILY@16 PO 06/10/16 16:00 06/13/16 16:29 (Aguilar Jim MD R2) A/P Assessment and Plan 66-year-old male with history of COPD presents with palpitations. Found to be in atrial fibrillation with RVR. He has subsequently converted and is rate controlled. He has been seen by cardiology and nuclear stress test will be performed when patient is stable from his alcohol withdrawal. Discharge Planning Nuclear stress test negative, per case management patient will follow up via phone call for possible alcohol rehabilitation. Patient will be discharged home today. (Aguilar Jim MD R2) Attending Attestation Patient seen and examined. Case reviewed and discussed with the resident team. Agree with plan of care as discussed with me and documented in the resident note. (Yvrose Mcnulty MD) Problem List: (1) Atrial fibrillation with RVR Status: Resolved Plan: Normal sinus rhythm after conversion and medical management [id number] score of 1 -Continue diltiazem 60 mg by mouth every 6 hours -Continue metoprolol 25 PO BID dana -Tele. -Consult cardiology, appreciate recs; will inform cardiology of negative nuclear stress test and await their recommendations -Continue warfarin and therapeutic lovenox; INR today is 1.3 -Trending INRs (2) COPD (chronic obstructive pulmonary disease) Status: Chronic Plan: History of COPD. Chest x-ray positive for emphysema -Albuterol nebulizer [id number] (3) Alcohol abuse Status: Chronic Plan: Drinks 1 pint per day. Alcohol level 298 on admission AST 131, AST 97 -CIWA protocol -Rally pack -Patient has withdrawn completely. -Counseled on risks of alcohol abuse -States he is interested in rehab, he has been informed by case management for numbers to call for possible outpatient rehabilitation. (4) Tobacco abuse disorder Status: Chronic Plan: Counseled for smoking cessation (5) Costochondritis Status: Acute Plan: Patient's chest pain is elicited with palpation. Believed to be due to costochondritis. Explained this diagnosis to the patient. -Tylenol when necessary (6) FEN Status: Chronic Plan: Heart healthy diet Fluids: none Electrolytes: hypokalemia, replacing PO Nutrition: heart healthy diet DVT ppx: therapeutic lovenox, is on Coumadin with INR today of 1.3 (Aguilar Jim MD R2) Problem Qualifiers (1) COPD (chronic obstructive pulmonary disease): Qualified Code: J44.9 - Chronic obstructive pulmonary disease, unspecified COPD type Aguilar Jim MD R2 Jun 14, 2016 08:12 Yvrose Mcnulty MD Jun 14, 2016 12:58
[2016-06-14] MEDS ORDERED: ACETAMINOPHEN 500 MG CPLT PO PRN (08:15)
[2016-06-14] MEDS: NICOTINE 21 MG/24 HR PATCH TD SCH (09:00)
[2016-06-14] MEDS ORDERED: ACET500T3 PO (10:16)
[2016-06-14] MEDS ORDERED: DILT60TA33 PO (10:16)
[2016-06-14] MEDS ORDERED: METO25TA3 PO (10:16)
[2016-06-14] MEDS ORDERED: COUM7.5T PO (10:16)
--- NOTE | 2016-06-14 10:17 | HHI.DCPOC ---
Discharge Care Plan Diagnosis: (1) Atrial fibrillation with RVR (2) COPD (chronic obstructive pulmonary disease) (3) Tobacco abuse disorder (4) FEN (5) Elevated troponin (6) Costochondritis (7) Alcohol abuse Goals to Promote Your Health * To prevent worsening of your condition and complications * To maintain your health at the optimal level Taking medication as prescribed. Do not drink alcohol. Follow-up with PCP Directions to Meet Your Goals Take your medications as prescribed Follow your dietary instruction Follow activity as directed Keep your appointments as scheduled Take your immunizations and boosters as scheduled If your symptoms worsen call your PCP, if no PCP go to Urgent Care Center or Emergency Room Smoking is Dangerous to Your Health. Avoid second hand smoke Call the 24-hour hour crisis hotline for domestic abuse at Aguilar Jim MD R2 Jun 14, 2016 10:17
--- NOTE | 2016-06-14 10:25 | HHI.FPPN ---
Addendum to progress note ADDENDUM Reason for addendum: Additonal documentation Additional information Off Service Note Patient was admitted on 06/07/16 for chest pain. He was found to have A. fib with RVR. He is controlled with diltiazem and metoprolol. He also has a history of drinking 1 pint of alcohol every day since his left him. During his hospitalization he went through alcohol withdrawal and was treated with CIWA protocol. Once tremors improved she received his stress test with negative results. He is requesting discharge to alcohol rehabilitation in case management is currently working on placement. Awaiting final recommendations from cardiology over the nuclear stress test as well as case management recommendations for placement. Aguilar Jim MD R2 Jun 14, 2016 10:25
[2016-06-14] MEDS: METOPROLOL TARTRATE 25 MG TAB PO SCH (10:30)
[2016-06-14] MEDS: SODIUM CHLORIDE 0.9% FLUSH 5 ML FLUSH FLUSH SCH (10:30)
[2016-06-14] MEDS: THIAMINE HCL 100 MG TAB PO SCH (10:30)
--- NOTE | 2016-06-14 17:24 | HHI.DS ---
Discharge Summary Admission Date Jun 07, 2016 at 16:30 Discharge Date: Jun 14, 2016 Admitting Diagnosis new onset atrial fibrillation, elevated troponin (1) Atrial fibrillation with RVR Diagnosis: Principal Plan: Normal sinus rhythm after conversion and medical management [id number] score of 1 -Continue diltiazem 60 mg by mouth every 6 hours -Continue metoprolol 25 PO BID elmer -Tele. -Consult cardiology, appreciate recs; will inform cardiology of negative nuclear stress test and await their recommendations -Continue warfarin and therapeutic lovenox; INR today is 1.3 -Trending INRs (2) COPD (chronic obstructive pulmonary disease) Diagnosis: Secondary Plan: History of COPD. Chest x-ray positive for emphysema -Albuterol nebulizer [id number] (3) Alcohol abuse Diagnosis: Secondary Plan: Drinks 1 pint per day. Alcohol level 298 on admission AST 131, AST 97 -CIWA protocol -Rally pack -Patient has withdrawn completely. -Counseled on risks of alcohol abuse -States he is interested in rehab, he has been informed by case management for numbers to call for possible outpatient rehabilitation. (4) Tobacco abuse disorder Diagnosis: Secondary Plan: Counseled for smoking cessation (5) Costochondritis Diagnosis: Secondary Plan: Patient's chest pain is elicited with palpation. Believed to be due to costochondritis. Explained this diagnosis to the patient. -Tylenol when necessary (6) FEN Diagnosis: Secondary Plan: Heart healthy diet Fluids: none Electrolytes: hypokalemia, replacing PO Nutrition: heart healthy diet DVT ppx: therapeutic lovenox, is on Coumadin with INR today of 1.3 Consultants Cardiology Procedures Nuclear stress test Brief History 66 y/o male with a history of COPD presents by evac for palpitations. States for the last two days, he has felt general malaise and palpitations. Denies any palpitations in the past. Also states he has had trouble sleeping and decreased appetite. Some chest pain in the past, none currently. Has a history of COPD and chronic shortness of breath after walking a couple blocks. Endorses lightheadedness/dizziness, fever/chills. Drinks a pint of liquor a day for several years. No history of heart disease. No family history of heart disease. No history of high blood pressure or hyperthyroidism. No strokes in the past. Has no primary care doctor. CBC/BMP: 06/14/16 0536 06/14/16 0536 Significant Findings Laboratory Tests Test 06/12/16 06/13/16 06/14/16 05:08 05:18 05:36 Prothrombin Time 13.6 SEC 14.0 SEC 14.2 SEC (9.8-11.6) (9.8-11.6) (9.8-11.6) Red Blood Count 4.34 MIL/MM3 4.45 MIL/MM3 (4.50-5.90) (4.50-5.90) Monocytes (%) (Auto) 16.3 % 16.4 % (0.0-8.0) (0.0-8.0) Eosinophils (%) (Auto) 12.6 % 12.8 % (0.0-4.0) (0.0-4.0) Monocytes # (Auto) 1.2 TH/MM3 1.1 TH/MM3 (0-0.9) (0-0.9) Eosinophils # (Auto) 0.9 TH/MM3 0.8 TH/MM3 (0-0.4) (0-0.4) Blood Urea Nitrogen 24 MG/DL (7-18) 27 MG/DL (7-18) Random Glucose 117 MG/DL (74-106) Basophils (%) (Auto) 2.2 % (0.0-2.0) PE at Discharge O. CONSTITUTIONAL/GEN: normally nourished, tremulousness today only with intention. LUNGS: Coarse breath sounds throughout, scattered wheezes CARDIOVASCULAR: RR without murmur or gallop. No significant edema. GI/ABD: soft without masses, without organomegaly. Active bowel sounds NEURO: No focal deficits. Tremulousness improved SKIN: color normal, no rashes noted. HEME/LYMPH: no bruising, petechia or significant adenopathy MUSC: back is normal in appearance. Extremities are normal in appearance. PSYCH/MENTAL STATUS: Alert and oriented x 3. Hospital Course 66 y/o male with history of COPD and alcohol abuse presented with new onset atrial fibrillation with RVR. Patient became rate controlled after several oral medications. Patient was placed on metoprolol and cardizem oral. Cardiology was consulted and recommended nuclear stress test. Patient had a history of drinking a pint of alcohol daily and was placed on CIWA protocol during admission for withdrawals. Patient remained stable and nuclear stress test was performed after patient become less tremulous and was negative. Patient was started on warfarin and instructed to follow-up with blade aligner and PCP. Pt wanted to be placed in an alcohol rehab program upon discharge. Pt Condition on Discharge: Stable Discharge Disposition: Discharge Home Discharge Instructions DIET: Follow Instructions for: Heart Healthy Diet Activities you can perform: Regular-No Restrictions Follow up Referrals: Cardiology - 1 Week with Aguilar Tomlin MD Physician - 1 Week with PCP New Orders: PT/INR - Next Day New Medications: Acetaminophen (Acetaminophen) 500 Mg Tab 500 MG PO Q6H PRN PAIN 1-10 OR TEMP > 100.4F #30 TAB Diltiazem (Cardizem) 60 Mg Tab 60 MG PO Q6H #30 TAB Metoprolol Tartrate (Metoprolol Tartrate) 25 Mg Tab 25 MG PO BID #60 TAB Warfarin (Coumadin) 7.5 Mg Tab 7.5 MG PO DAILY@16 #30 TAB Valeriano Smith MD R1 Jun 14, 2016 17:24
== END 2016-06-14 13:50 | disposition home or self-care (01) | DRG 309 ==
LOC: NEPC 14:58 → NEDA 16:30 → HCPC 18:53
PROVIDERS: ADMIT Family Medicine; ATTEND Family Medicine
DX: I48.0 Paroxysmal atrial fibrillation (principal); F10.231 Alcohol dependence with withdrawal delirium; J44.9 Chronic obstructive pulmonary disease, unspecified; R63.0 Anorexia; Z68.1 Body mass index [BMI] 19.9 or less, adult; E87.6 Hypokalemia; M94.0 Chondrocostal junction syndrome [Tietze]; F17.210 Nicotine dependence, cigarettes, uncomplicated; Y90.8 Blood alcohol level of 240 mg/100 ml or more; Z23 Encounter for immunization; Z66 Do not resuscitate
CPT/HCPCS: 71010; 78452; 80048; 80053; 80320; 82550; 83735; 84439; 84443; 84484; 85025; 85027; 85610; 85730; 90471; 90472; 90686; 90714; 90732; 93005; 93017; 93306; 94640; 94664; 96361; 96374; 96375; 96376; A9502; G0008; G0009; G8987-GP; G8988-GP; J1160; J1650; J2060; J2785; J7030; J7613; Q2038